=== PATIENT | female | born 1980 | race Caucasian/White ===

== ENCOUNTER → 2016-03-28 | Outpatient (REF) | payer OTHER ==
[2016-03-29 08:06] LABS: CONTROL LINE MONO INT CTR LINE PRESENT
== END ==
LOC: M LAB REF 16:26
PROVIDERS: ATTEND Nurse Practitioner Adult Health
DX: R05 Cough (principal); R50.9 Fever, unspecified

== ENCOUNTER → 2016-07-05 | Outpatient (REF) | payer OTHER | LOC: M SFHCWAGY 16:27 | PROVIDERS: ATTEND Nurse Practitioner Women's Health | DX: Z12.4 Encounter for screening for malignant neoplasm of cervix (principal) ==

== ENCOUNTER 2017-06-21 15:27 | Emergency (ER) | payer OTHER ==
[2017-06-21 17:00] LABS: BASO # 0.1 10^3/uL (0.0-0.2); BASO % 0.4 % (0.0-1.0); EOS # 0.1 10^3/uL (0.0-0.50); EOS % 0.8 % (0.0-3.0); HEMATOCRIT 41.8 % (36.0-47.0); IMMATURE GRANULOCYTE % 0.5 % (0-3.0); LYMPH # 2.9 10^3/uL (1.5-4.5); LYMPH % 22.3 % (24.0-44.0); MEAN CORPUSCULAR HEMOGLOBIN 29.5 pg (27.0-33.0); MEAN CORPUSCULAR HGB CONC 33.5 g/dl (32.0-36.5); MONO # 0.5 10^3/uL (0.0-0.8); MONO % 4.1 % (0.0-5.0); NEUTROPHILS # 9.2 10^3/uL (1.8-7.7); NEUTROPHILS % 71.9 % (36.0-66.0); PLATELET COUNT, AUTOMATED 316 10^3/uL (150-450); RED BLOOD COUNT 4.75 10^6/uL (4.00-5.40); RED CELL DISTRIBUTION WIDTH 12.9 % (11.5-14.5); WHITE BLOOD COUNT 12.8 10^3/uL (4.0-10.0)
[2017-06-21 17:13] LABS: INR 0.97
[2017-06-21 17:14] LABS: PARTIAL THROMBOPLASTIN TIME 30.3 SECONDS (26.8-37.9)
[2017-06-21 17:59] LABS: CONTROL LINE HCG INT CTR LINE PRESENT; HCG, SERUM QUALITATIVE NEGATIVE (NEGATIVE)
[2017-06-21 18:05] LABS: ALBUMIN 3.5 GM/DL (3.2-5.2); ALBUMIN/GLOBULIN RATIO 0.88 (1.00-1.93); ALKALINE PHOSPHATASE 109 U/L (45-117); ALT/SGPT 15 U/L (12-78); ANION GAP 8 MEQ/L (8-16); AST/SGOT 15 U/L (7-37); BILIRUBIN,DIRECT < 0.1 MG/DL (0.0-0.2); BILIRUBIN,TOTAL 0.3 MG/DL (0.2-1.0); BLOOD UREA NITROGEN 13 MG/DL (7-18); CALCIUM LEVEL 8.4 MG/DL (8.5-10.1); CARBON DIOXIDE LEVEL 21 MEQ/L (21-32); CHLORIDE LEVEL 112 MEQ/L (98-107); CPK CREATINE PHOSPHOKINASE 96 U/L (26-192); CREATININE FOR GFR 0.96 MG/DL (0.55-1.30); GLOMERULAR FILTRATION RATE > 60.0 (>60); GLUCOSE, FASTING 83 MG/DL (70-100); MAGNESIUM LEVEL 1.9 MG/DL (1.8-2.4); PHOSPHORUS LEVEL 2.6 MG/DL (2.5-4.9); POTASSIUM SERUM 3.4 MEQ/L (3.5-5.1); SODIUM LEVEL 141 MEQ/L (136-145); TOTAL PROTEIN 7.5 GM/DL (6.4-8.2); TROPONIN I < 0.02 NG/ML (< 0.10)
[2017-06-21 18:10] LABS: CK-MB VALUE MASS < 1.0 NG/ML (<3.6); MB/CK RELATIVE INDEX 1.04 (< OR =4)
[2017-06-21] MEDS: POTASSIUM CHLORIDE 10 MEQ SR TABLET PO (18:42)
== END 2017-06-21 19:55 | disposition home or self-care (01) ==
LOC: M ED 15:27
DX: R47.89 Other speech disturbances (principal); F33.9 Major depressive disorder, recurrent, unspecified; F41.9 Anxiety disorder, unspecified; Z86.69 Personal history of other diseases of the nervous system and sense organs; Z87.891 Personal history of nicotine dependence; Z88.8 Allergy status to other drugs, medicaments and biological substances; Z91.02 Food additives allergy status; Z79.899 Other long term (current) drug therapy
CPT/HCPCS: 71046

== ENCOUNTER 2019-02-17 11:16 | Emergency (ER) | payer OTHER, SELFPAY ==
[~2019-02-17] VITALS: Ht 165.1 cm; Wt 106.4 kg
[~2019-02-17 11:16] MED LIST: CITA40TA4 PO; EXCETAB80 PO; GABA-1171 PO; TOPI50TA9 PO; [UNRECOGNIZED DRUG - OTHER] PO
[2019-02-17] MEDS ORDERED: BUTA-198 PO (11:48)
[2019-02-17 12:47] LABS: BASO # 0.1 10^3/uL (0.0-0.2); BASO % 0.5 % (0.0-1.0); EOS # 0.2 10^3/uL (0.0-0.5); EOS % 1.6 % (0.0-3.0); HEMATOCRIT 41.9 % (36.0-47.0); HEMOGLOBIN 13.6 g/dl (12.0-15.5); LYMPH # 2.8 10^3/uL (1.5-5.0); LYMPH % 26.7 % (24.0-44.0); MEAN CORPUSCULAR HEMOGLOBIN 29.3 pg (27.0-33.0); MEAN CORPUSCULAR HGB CONC 32.5 g/dl (32.0-36.5); MEAN CORPUSCULAR VOLUME 90.3 fl (80.0-96.0); MONO # 0.5 10^3/uL (0.0-0.8); MONO % 4.3 % (0.0-5.0); NEUTROPHILS # 6.9 10^3/uL (1.5-8.5); NEUTROPHILS % 66.6 % (36.0-66.0); PLATELET COUNT, AUTOMATED 257 10^3/uL (150-450); RED BLOOD COUNT 4.64 10^6/uL (4.00-5.40); WHITE BLOOD COUNT 10.4 10^3/uL (4.0-10.0)
--- NOTE | 2019-02-17 13:33 | REP ---
Acute abdomen series: Three views. History: Chest and epigastric pain. Comparison chest x-ray: June 21, 2017. Findings: The upright chest radiograph is normal. There is no evidence of infiltrate or free subdiaphragmatic air. Heart is not enlarged. Supine and erect views of the abdomen show a normal bowel gas pattern. There are tubal ligation clamps in the pelvis both in the midline. Psoas margins and flank stripes are intact. No mass, organomegaly or pathologic calcification is seen. Impression: Tubal ligation clamps visible in the pelvis. Normal bowel gas pattern. Otherwise unremarkable abdomen series. Electronically Signed by Ulises Luis MD 02/17/2019 02:54 P
[2019-02-17 13:58] LABS: ALBUMIN 3.2 GM/DL (3.2-5.2); ALT/SGPT 15 U/L (12-78); AMYLASE 57 U/L (25-115); BILIRUBIN,DIRECT 0.2 MG/DL (0.0-0.2); BILIRUBIN,TOTAL 0.5 MG/DL (0.2-1.0); BLOOD UREA NITROGEN 14 MG/DL (7-18); CALCIUM LEVEL 8.9 MG/DL (8.5-10.1); CARBON DIOXIDE LEVEL 20 MEQ/L (21-32); CHLORIDE LEVEL 108 MEQ/L (98-107); CK-MB VALUE MASS < 1.0 NG/ML (<3.6); CPK CREATINE PHOSPHOKINASE 91 U/L (26-192); GLOMERULAR FILTRATION RATE > 60.0 (>60); GLUCOSE, FASTING 78 MG/DL (70-100); LIPASE 99 U/L (73-393); POTASSIUM SERUM 3.9 MEQ/L (3.5-5.1); SODIUM LEVEL 139 MEQ/L (136-145); TOTAL PROTEIN 6.9 GM/DL (6.4-8.2); TROPONIN I < 0.02 NG/ML (< 0.10)
[2019-02-17 14:16] VITALS: BP 124/74
[2019-02-17] MEDS ORDERED: ISOVUE-370 76% 100ML VIAL (Q9967) As Ordered ONE (14:22)
--- NOTE | 2019-02-17 14:57 | REP ---
CT pulmonary angiogram: With IV contrast. History: Chest pain, elevated D-dimer. Comparison studies: No comparison chest CT. Contrast dose: 75 mL of Isovue [address] technique: Helical scanning is acquired and overlapping 1.5 mm and contiguous 3 mm axial images are reformatted. In addition, maximum intensity projection and multiplanar re-formation images are generated in sagittal and coronal imaging projections. CT pulmonary angiographic findings: There is good opacification in the pulmonary arterial tree. Maximal intensity projection images show no vessel cutoff or filling defect. There is no evidence to suggest pulmonary embolism. Thoracic aorta enhances homogeneously and is normal in course and caliber. The lung ham are clear. There is no evidence of pleural effusion or pericardial effusion. No hilar or mediastinal mass or adenopathy is observed. No bony destructive lesion is appreciated. Impression: No CT evidence of pulmonary embolus. Unremarkable CT pulmonary angiogram. No active disease. Electronically Signed by Ulises Luis MD 02/17/2019 05:52 P
[2019-02-17] MEDS ORDERED: KETOROLAC 30 MG/ML VIAL (J1885) IV ONE (15:15)
[2019-02-17] MEDS ORDERED: NS 500 ML IV ONE (15:15)
[2019-02-17] MEDS ORDERED: SIME180C PO (15:18)
[2019-02-17] MEDS ORDERED: PEPC1TAB5 PO (15:18)
--- NOTE | 2019-02-19 07:38 | ECGEPIP ---
[facility] - ED Test Date: 2019-02-17 Pat Name: JONATHAN ROBLERO Department: Room: - Gender: Female [employer] Operator: : 1980 Requested By: CHANDLER Metzger Order Number: [id number] Reading MD: Lucia Chakraborty Measurements Intervals [place] Rate: 61 P: 28 SD: 134 QRS: 57 QRSD: 86 T: 34 QT: 405 QTc: 409 Interpretive Statements SINUS RHYTHM SIMILAR 06/21/17 Electronically Signed on 02-19-2019 7:38:02 EST by Lucia Chakraborty
== END 2019-02-17 16:11 | disposition home or self-care (01) ==
LOC: M ED 11:16
DX: R07.89 Other chest pain (principal); K58.9 Irritable bowel syndrome, unspecified; G43.909 Migraine, unspecified, not intractable, without status migrainosus; Z79.899 Other long term (current) drug therapy; Z91.018 Allergy to other foods; Z88.8 Allergy status to other drugs, medicaments and biological substances; Z88.6 Allergy status to analgesic agent
CPT/HCPCS: 36415; 71275; 74021; 80048; 80076; 82150; 82550; 82553; 83690; 85025; 85379; 93005; 96361; 96374; 99284; J1885; Q9967

== ENCOUNTER → 2019-04-16 | Outpatient (REF) | payer OTHER ==
[~2019-04-16] MED LIST changes: +BUTA-198 PO; +PEPC1TAB5 PO; +SIME180C PO
[2019-04-16 16:04] LABS: CHLAMYDIA DNA AMPLIFICATION NEGATIVE (NEGATIVE); GC DNA AMPLIFICATION NEGATIVE (NEGATIVE)
== END ==
LOC: M SFHCWAGY 13:39
PROVIDERS: ATTEND Nurse Practitioner Women's Health
DX: R10.2 Pelvic and perineal pain (principal)

== ENCOUNTER → 2019-04-16 | Outpatient (REF) | payer MEDICAID, OTHER, SELFPAY | LOC: M SFHCWAGY 13:11 | PROVIDERS: ATTEND Nurse Practitioner Women's Health | DX: Z12.4 Encounter for screening for malignant neoplasm of cervix (principal) ==

== ENCOUNTER → 2019-06-10 | Outpatient (CLI) | payer OTHER | LOC: M LABSMTC 13:05 | PROVIDERS: ATTEND Family Medicine | DX: Z11.59 Encounter for screening for other viral diseases (principal); Z20.828 Contact with and (suspected) exposure to other viral communicable diseases ==

== ENCOUNTER → 2019-07-15 | Outpatient (CLI) | payer OTHER ==
--- NOTE | 2019-07-15 19:13 | REP ---
Clinical: Pelvic pain. Technique: Transabdominal pelvic ultrasound followed by transvaginal examination for better evaluation of the endometrium and adnexa. Findings: Bladder is normal and measures 6.8 x 6.5 x 5.1 cm. Retroverted uterus measures 7.2 x 4.0 x 4.3 cm with 1.0 cm fundal fibroid. Endometrial complex measures 12 mm thickness. No discrete endometrial abnormalities are identified. Bilateral ovaries are normal in appearance and vascularity without torsion. Right ovary measures 2.8 x 2.1 x 1.9 cm. Left ovary measures 3.2 x 2.8 x 2.7 cm and includes 2.0 cm presumed physiologic cyst / dominant follicle. Trace free fluid likely physiologic and related to menstrual cycle. Impression: 1. 1 cm fundal fibroid. 2. 2 cm left ovarian cyst likely physiologic.
== END ==
LOC: M WHC 08:06
PROVIDERS: ATTEND Nurse Practitioner Women's Health
DX: R10.2 Pelvic and perineal pain (principal); Z87.42 Personal history of other diseases of the female genital tract; Z12.4 Encounter for screening for malignant neoplasm of cervix; N83.201 Unspecified ovarian cyst, right side; D25.9 Leiomyoma of uterus, unspecified

== ENCOUNTER → 2020-03-02 | Outpatient (CLI) | payer OTHER ==
[~2020-03-02] MED LIST changes: +VITA500045 PO
--- NOTE | 2020-03-03 09:12 | REP ---
INDICATION: D25.9 LEIOMYOMA OF UTERUS COMPARISON: 07/15/2019 TECHNIQUE: Transabdominal pelvic ultrasound followed by transvaginal examination for better evaluation of the endometrium and adnexa with color Doppler evaluation of the ovaries. FINDINGS: Bladder is unremarkable and measures 12.4 x 9.1 x 8.2 cm (485 cc).. Heterogeneous retroverted uterus measures 8.0 x 3.8 x 5.6 cm. The endometrial complex measures 8.6 mm thickness. Subserosal fundal fibroid measuring 14 x 14 x 11 mm again noted and mildly enlarged compared to prior. Bilateral ovaries are normal in appearance and vascularity without evidence for torsion. Right ovary measures 3.6 x 2.3 x 2.2 cm with 1.7 cm physiologic cyst; R I = 0.58. Left ovary measures 2.2 x 1.6 x 2.1 cm; R I = 0.59. Small amount of free fluid in the pelvis is nonspecific and likely physiologic. IMPRESSION: Heterogeneous retroverted uterus with 14 mm subserosal fundal fibroid mildly increased in size from prior examination. <Electronically signed by Ok Arzola > 03/03/20 0908
== END ==
LOC: M WHC 12:46
PROVIDERS: ATTEND Obstetrics & Gynecology
DX: D25.9 Leiomyoma of uterus, unspecified (principal)

== ENCOUNTER → 2020-03-10 | Outpatient (CLI) | payer OTHER | LOC: M LABSMTC 11:20 | PROVIDERS: ATTEND Anesthesiology | DX: Z20.822 Contact with and (suspected) exposure to COVID-19 (principal) ==

== ENCOUNTER 2020-03-15 09:33 | Day surgery (SDC) | payer OTHER ==
[2020-03-14 17:45] VITALS: BP 105/63
[~2020-03-15] VITALS: Ht 167.6 cm; Wt 103.9 kg
[~2020-03-15 09:33] MED LIST changes: +LR 1,000 ML IV ONE
--- NOTE | 2020-03-15 09:36 | ROOPDOC ---
[facility] Report Of Operation Report of Operation DATE OF PROCEDURE: 03/15/20 PREPROCEDURE DIAGNOSES: 1. Fibroid uterus. 2. Chronic pelvic pain POSTPROCEDURE DIAGNOSES: 1.Fibroid uterus. 2. Chronic pelvic pain PROCEDURES PERFORMED: 1. Robotic-assisted laparoscopic hysterectomy. 2. Right salpingectomy. 3. Left salpingo-oophorectomy 4. Cystoscopy. SURGEON: Jomar Carrillo MD ASSEMBLY MEMBER: ROBIN Lazo ANESTHESIA: General endotracheal anesthesia. ESTIMATED BLOOD LOSS: 50 mL. INTRAVENOUS FLUIDS: 1000mL lactated Ringer solution. URINE OUTPUT: 100mL. PREPROCEDURE ANTIBIOTICS: 2g Ancef OPERATIVE FINDINGS: The patient with normal-appearing bilateral adnexa and fibroid uterus CYSTOSCOPIC FINDING: Normal bladder mucosa, no foreign objects. Bilateral ureteral jets were observed. SPECIMEN: Uterus, cervix, bilateral fallopian tubes and left ovary DESCRIPTION OF PROCEDURE: After informed consent was obtained and written consent was reviewed, the patient was brought to the operating room, where general endotracheal anesthesia was obtained. She was then placed in lithotomy position, was prepped and draped in a normal sterile fashion. A time-out in the operating room was then performed, identifying the patient, procedure to be performed, as well as drug allergies. A speculum was then placed, revealing the cervix. The anterior and posterior aspects of the cervix were stitched with a 0 Vicryl. The uterus was then sounded to 9 cm. A medium VCare uterine manipulator was then advanced through the cervical os for means to manipulate the uterus. The cervical cap was applied over the cervix, as well as the vaginal sleeve applied into the vagina. The speculum was removed from the patients vagina. A Zavala catheter was then placed and set to gravity. Gloves were changed, and attention was turned to the patients abdomen, where a Veress needle was placed through the umbilicus. A pneumoperitoneum was then obtained with CO2 gas. The supraumbilical area was infused with 0.25% Marcaine. An incision was made in this area, and a 8 mm trocar and sleeve was advanced through this incision. The laparoscope was then replaced, revealing intra-abdominal placement. Three additional port sites were placed, two to the left side of the patient's abdomen and one to the right. These areas was infused with 0.25% Marcaine. Each one of these areas, incisions were made, and 8 mm trocars and sleeves advanced through each one of these incisions under direct visualization. Next, the da Chaya was then docked, utilizing a camera arm and two operative arms. The patient's abdomen was then surveyed with the above-noted finding. Right salpingectomy was performed. The fallopian tube mesosalpinx was cauterized and ligated with hemostasis noted. Left salpingo-oophorectomy was then performed. The right infundibulopelvic ligament was cauterized and ligated with hemostasis noted Next, the uteroovarian ligaments bilateral were cauterized and ligated with good hemostasis noted. The round ligaments bilaterally were cauterized and ligated with good hemostasis noted. The anterior and posterior aspects of broad ligaments were . The anterior leaf of the broad ligament was cauterized and ligated and dissected along the bladder, creating a bladder flap. The remainder of the broad and cardinal ligaments were then cauterized and ligated with good hemostasis noted. The uterine arteries were skeletonized bilaterally and were cauterized and transected with good hemostasis noted. Anterior and posterior colpotomies were made using monopolar scissors. The uterus was then brought out through the vaginal incision along with both fallopian tubes and left ovary. The surgical sites were inspected and noted to be hemostatic. The vaginal cuff was then closed using 2- 0 V-Loc system in a running fashion. Rubi was then applied over the surgical field. The pneumoperitoneum was then released. Next, the cystoscopy was then performed. Utilizing a 70-degree cystoscope, it was advanced transurethrally through the bladder. The bladder was surveyed, showing normal bladder mucosa, no foreign bodies. The bilateral ureteral jets were observed. The cystoscope was then removed. The bladder was then drained. Gloves were changed. Attention was then turned to the patients abdomen, where all four port sites were closed with 4-0 Monocryl and dressed with Dermabond. The patient was then taken out of lithotomy position and was awakened from general anesthesia and taken to recovery in stable condition. Counts were correct. Carlota Stanley, my surgical appliances salesperson, played a central role in the operation. She assisted with port placement, tissue retraction and identification, as well as wound closure. JOMAR CARRILLO MD. Mar 15, 2020 09:36
--- OUTSIDE RECORDS SUMMARY | 2020-03-15 09:38 | CCD | Continuity of Care Document ---
Author Author Gemini WESTBROOK M.D. Organization Unknown Address [address] [place] [id number] Phone [phone] Care Team Providers Care Pool Finisher Name Role Phone Albert, Randa PA-Tung AUTM [phone] Nhung Silverio RPA-C AUTM [phone] Problems Active Problems Provider Date Irritable bowel syndrome Durga Westbrook M.D. Onset: 04/2019 Social History Type Date Description Comments Sex Unknown ETOH Use Denies alcohol use Tobacco Use Start: Unknown Patient has never smoked Allergies, Adverse Reactions, Alerts Active Allergies Reaction Severity Comments Date Imitrex 01/15/2020 Treximet 01/15/2020 Deprovera 01/15/2020 Gabapentin 01/15/2020 Medications Active Medications SIG Qnty Indications Ordering Provide r Date Hyoscyamine Sulfate 0.125mg Tablet s Sub dissolve 1 tablet under the tongue every 4 hours as needed for abdominal pain 60tabs Durga Westbrook M.D. 01/15/2020 Topiramate 50mg Tablets Take One Tablet By Mouth Every Day Along With 100MG Dose Unknown Citalopram Hydrobromide 40mg Table ts Take One Tablet By Mouth Every Day Unknown Amoxicillin/Clavulanate Potassium 875-125mg Tablets Take One Tablet By Mouth Twice A Day For 10 Days Unknown Mucinex Childrens Freeform Cough/Mucus 5-100mg/5ML Liquid Unknown Immunizations Description No Information Available Vital Signs Date Vital Result Comment 01/15/2020 12:28pm Height 66 inches 5'6" Weight 221.00 lb BP Systolic 132 mmHg BP Diastolic 84 mmHg Heart Rate 72 /min BMI (Body Mass Index) 35.7 kg/m2 Weight 100.246 kg Body Temperature 97.2 F Results Description No Information Available Procedures Description No Information Available Medical Devices Description No Information Available Encounters Type Date Location Provider Dx Diagnosis Office Visit 01/15/2020 11:45a Main Office Durga Westbrook M.D. K 58.0 Irritable bowel syndrome with diarrhea Assessments Date Code Description Provider 01/15/2020 K58.0 Irritable bowel syndrome Durga Westbrook M.D. Plan of Treatment 01/15/2020 - Durga Westbrook M.D.* K58.0 Irritable bowel syndrome* Comments: * 39 yo wf who has a h/o irregular bowel habits/lower abdominal cramps/bloating/tenderness. She has had these symptoms for years. No fevers, or chills. Pt may have endometriosis causing her symptoms. No fevers or chills. No rectal bleeding.Plan:1. Heating pad to control cramps/tenderness.2. Antispasmotics.3. High fiber diet.4. Office prn. Functional Status Description No Information Available Mental Status Description No Information Available Referrals Description No Information Available
--- OUTSIDE RECORDS SUMMARY | 2020-03-15 09:38 | CCD ---
Author Author [facility] Organization [facility] Address Unknown Phone Unavailable Care Team Providers Care Global Marketing Manager Name Role Phone JohnPrincess szymanskiKat Unavailable PROBLEMS Type Condition ICD9-CM Code QKD98-UM Code Onset Dates Condition S tatus SNOMED Code Notes Problem Irritable bowel syndrome with both constipation and diarrh ea K58.2 Active 05153527 Problem Abnormal uterine bleeding (AUB) N93.9 Active 47424572882914 Problem Irregular menstrual cycle N92.6 Active 241608 07 Problem Migraine G43.909 Active 01261536 Problem Vaginal discharge N89.8 Active 781422738 ALLERGIES Allergen (clinical drug ingredient) Drug/Non Drug Allergy do cumented on EMR Reaction Allergy Type Onset Date Status naproxen / sumatriptan Treximet([facility] Code:[address]-87) Conf usion/fast heart beat Drug Allergy Active gabapentin Gabapentin(ND Code:[address]-99) chest pain Drug Allergy Active medroxyprogesterone Depo-Provera(ND Code:[address]-52) ping st pain/abd. pain/rash Drug Allergy Active sumatriptan Imitrex(ND Code:[address]-38) confusion/fast h eart beat Drug Allergy Active ENCOUNTERS from 1980 to 2020-01-13 Encounter Location Date Provider Diagnosis [facility] [address] [place] [id number] Dec, Kat Lopez Abnormal uterine ble eding (AUB) N93.9 ; Uterine leiomyoma, unspecified location D25.9 and Irritable bowel syndrome with both constipation and diarrhea K58.2 IMMUNIZATIONS No Information SOCIAL HISTORY Tobacco Use: Social History Observation Description Date Details (start date - stop date) Never Smoker Sex Assigned At : Social History Observation Description Sex Assigned At Unknown Language: Question Answer Notes Languages spoken: Marshallese Sexual Hx: Question Answer Notes Had sex in the last 12 months (vaginal, oral, or anal)? Yes LMP: 04/15/2019 Have you ever had an STD? No Prevention Strategies discussed: Condoms with Men only Use protection? No Tobacco Use: Question Answer Notes Are you a: never smoker REASON FOR REFERRAL No Information VITAL SIGNS Weight 226 lbs Dec, Weight-kg 102.51 kg Dec, Height 63.75 in Dec, BMI 39.09 kg/m2 Dec, Blood pressure systolic 120 mm Hg Dec, Blood pressure diastolic 80 mm Hg Dec, MEDICATIONS Medication SIG (Take, Route, Frequency, Duration) Notes Start Da te End Date Status Ibuprofen 200 mg 1 tablet Orally Every 4 hours as needed MDD 2400 mg Not-Taking MetroGel-Vaginal 0.75 % 1 application at bedtime Vag inal Once a day for 5 day(s) May, Not-Taking Celexa 40 MG 1 tablet Orally Once a day Active Excedrin Migraine 250-250-65 MG 2 tablets Orally Once a day as needed Active Tylenol 325 MG 1 tablet as needed Orally every 6 hrs Not-Taking Topamax 100 MG 1 tablet Orally Once a day Active Diflucan 150 MG 1 tablet Orally Once a day for 1 dose(s) 2 0 May, 2016 Not-Taking PROCEDURES No Information RESULTS No Results REASON FOR VISIT LEFTSIDED LOWER PAIN MEDICAL (GENERAL) HISTORY Type Description Date Medical History depression Medical History migraine sees jorge alberto Cho [employer] Medical History IBS Medical History Uterine fibroids Surgical History tubal ligation 12/25/14 Hospitalization History No Hospitalization history informati on Goals Section No Information Health Concerns No Information MEDICAL EQUIPMENT No Information MENTAL STATUS No Information FUNCTIONAL STATUS No Information ASSESSMENTS Encounter Date Diagnosis Assessment Notes Treatment Notes Treatm ent Clinical Notes Dec, Abnormal uterine bleeding (AUB) (ICD-10 - N93.9) Pt noticing progression of symptoms with menses. Does not tolerate Mirena iud, states allergic to depo, cannot take ocp due to migraines. Would like to have surgical consult for hyster. Dec, Uterine leiomyoma, unspecified location (ICD-10 - D25.9) Dec, Irritable bowel syndrome wit h both constipation and diarrhea (ICD- 10 - K58.2) f/u with GI next week. PLAN OF TREATMENT Treatment Notes Assessment Notes Clinical Notes Abnormal uterine bleeding (AUB) Pt notic ing progression of symptoms with menses. Does not tolerate Mirena iud, states allergic to depo, cannot take ocp due to migraines. Would like to have surgical consult for hyster. Irritable bowel syndrome with both constipation and diarrhea f/u with GI next week. Next Appt Details prn Reason:surgical consult for hyster Provider Name:Soniya Carrillo, 2020-02-23 1 0:40:00 AM, [address] [place], [address], Follow Up:prnsurgical consult for hyster Insurance Providers Payer Name Payer Address Payer Phone Insured Name Patient Relati onship to Insured Coverage Start Date Coverage End Date [facility] [employer] [address] [facility] [phone] JONATHAN ROBLERO self
--- OUTSIDE RECORDS SUMMARY | 2020-03-15 09:38 | CCD | Continuity of Care Document ---
Author Author Gemini CHO P.A.-C. Organization Unknown Address [address] [place] [address] Phone [phone] Care Team Providers Care Bottling Room Worker Name Role Phone Lokesh Gilmore AUTM [phone] Problems Description No Information Available Social History Type Date Description Comments Sex Unknown Allergies, Adverse Reactions, Alerts Active Allergies Reaction Severity Comments Date Maxalt 12/01/2009 Tussionex Pennkinetic Extended Release 12/01/2009 Treximet palpitations, sweats, and heaviness in arms and chest 06/23/2010 Hydroxyzine extreme fatigue 07/22/2013 Claritin-D dizziness, spacy 04/23/2015 Depo Provera rash, chest pain 01/27/2016 Imitrex did not tolerate 01/27/2016 Gabapentin 02/14/2018 Medications Active Medications SIG Qnty Indications Ordering Provide r Date Topamax 50mg Tablets 1 po daily with 100 mg dose 30tabs G43.709 Karolyn Muniz M.D. 12/16/2019 Butalbital/Acetaminophen/Caffeine 50-325-40mg Tablets take 1 tablet by mouth at onset of uncon trolled migraine maximum daily dose = 2 30tabs G43.709 Karolyn Muniz M.D. 02/14/2018 Topamax 100mg Tablets 1 po daily 30tabs G44.219 Karolyn Muniz M.D. 08/14/2017 Celexa 40mg Tablets 1 by mouth every day 30tabs F32.89 Karolyn Muniz M.D. 06/18/2017 Immunizations Description No Information Available Vital Signs Date Vital Result Comment 02/11/2019 6:56am BP Systolic 130 mmHg BP Diastolic 80 mmHg Heart Rate 72 /min Respiratory Rate 16 /min 08/06/2018 7:26am BP Systolic 110 mmHg BP Diastolic 80 mmHg Heart Rate 76 /min Respiratory Rate 16 /min Results Description No Information Available Procedures Description No Information Available Medical Devices Description No Information Available Encounters Type Date Location Provider Dx Diagnosis Office Visit 12/16/2019 8:00a Main office - [place] Juan Lucas.A.-C. 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 12/16/2019 G43.709 Chronic migraine without aura, n ot intractable, without stat Marcella Cho, P.A.-C. 12/16/2019 M54.5 Low back pain Marcella Cho P.A.-C. 12/16/2019 R20.2 Paresthesia of skin Marcella catalan P.A.-C. 12/16/2019 F32.89 Other specified depressive episo max Marcella Cho P.A.-C. 08/06/2019 G43.709 Chronic migraine without aura, n ot intractable, without stat Digna SanchezAScottie-C. 08/06/2019 G44.219 Episodic tension-type headache, not intractable Juan Sanchez.AScottie-C. 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 08/06/2019 F32.89 Other specified depressive episo max Marcella Cho P.A.-C. 08/06/2019 M54.2 Cervicalgia Marcella Cho P.A.-C. 08/06/2019 M54.5 Low back pain Juan Sanchez.A.-C. 08/06/2019 R20.2 Paresthesia of skin Francisco Lucas-CScottie Plan of Treatment Future Appointment(s):* 03/16/2020 9:00 am - Marcella Cho P.A.-C. 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 Created [facility] [address] [place] [address] [phone]
--- OUTSIDE RECORDS SUMMARY | 2020-03-15 09:38 | CCD ---
Author Author [facility] Organization [facility] Address Unknown Phone Unavailable Care Team Providers Care Frame Trimmer Name Role Phone Debbie Orr Unavailable Naper, L Faby CONGRESSIONAL REPRESENTATIVE Unavailable Unavailable Naper, L Faby CONGRESSIONAL REPRESENTATIVE Unavailable Unavailable Naper, L Faby CONGRESSIONAL REPRESENTATIVE Unavailable Unavailable Drew, L Faby CONGRESSIONAL REPRESENTATIVE Unavailable Unavailable Naper, L Faby CONGRESSIONAL REPRESENTATIVE Unavailable Unavailable Naper, L Faby CONGRESSIONAL REPRESENTATIVE Unavailable Unavailable Naper, L Faby CONGRESSIONAL REPRESENTATIVE Unavailable Unavailable Drew, L Faby CONGRESSIONAL REPRESENTATIVE Unavailable Unavailable Drew, L Faby CONGRESSIONAL REPRESENTATIVE Unavailable Unavailable Naper, L Faby CONGRESSIONAL REPRESENTATIVE Unavailable Unavailable Naper, L Faby CONGRESSIONAL REPRESENTATIVE Unavailable Unavailable Drew, L Faby CONGRESSIONAL REPRESENTATIVE Unavailable Unavailable Drew, L Faby CONGRESSIONAL REPRESENTATIVE Unavailable Unavailable Naper, L Faby CONGRESSIONAL REPRESENTATIVE Unavailable Unavailable Naper, L Faby CONGRESSIONAL REPRESENTATIVE Unavailable Unavailable Naper, L Faby CONGRESSIONAL REPRESENTATIVE Unavailable Unavailable Drew, L Faby CONGRESSIONAL REPRESENTATIVE Unavailable Unavailable Drew, L Faby CONGRESSIONAL REPRESENTATIVE Unavailable Unavailable Drew, L Faby CONGRESSIONAL REPRESENTATIVE Unavailable Unavailable Drew, L Faby CONGRESSIONAL REPRESENTATIVE Unavailable Unavailable Naper, L Faby CONGRESSIONAL REPRESENTATIVE Unavailable Unavailable Naper, L Faby CONGRESSIONAL REPRESENTATIVE Unavailable Unavailable Drew, L Faby CONGRESSIONAL REPRESENTATIVE Unavailable Unavailable Drew, L Faby CONGRESSIONAL REPRESENTATIVE Unavailable Unavailable Drew, L Faby CONGRESSIONAL REPRESENTATIVE Unavailable Unavailable Naper, L Faby CONGRESSIONAL REPRESENTATIVE Unavailable Unavailable Naper, L Faby CONGRESSIONAL REPRESENTATIVE Unavailable Unavailable Drew, L Faby CONGRESSIONAL REPRESENTATIVE Unavailable Unavailable Naper, L Faby CONGRESSIONAL REPRESENTATIVE Unavailable Unavailable Naper, L Faby CONGRESSIONAL REPRESENTATIVE Unavailable Unavailable Naper, L Faby CONGRESSIONAL REPRESENTATIVE Unavailable Unavailable Naper, L Faby CONGRESSIONAL REPRESENTATIVE Unavailable Unavailable Drew, L Faby CONGRESSIONAL REPRESENTATIVE Unavailable Unavailable Rishi Westbrook MD Unavailable Unavailable Rishi Westbrook MD Unavailable Unavailable Rishi Westbrook MD Unavailable Unavailable Rishi Westbrook MD Unavailable Unavailable Rishi Westbrook MD Unavailable Unavailable Rishi Westbrook MD Unavailable Unavailable Rishi Westbrook MD Unavailable Unavailable Rishi Westbrook MD Unavailable Unavailable Rishi Westbrook MD Unavailable Unavailable Rishi Westbrook MD Unavailable Unavailable Rishi Westbrook MD Unavailable Unavailable Rishi Westbrook MD Unavailable Unavailable Rishi Westbrook MD Unavailable Unavailable Rishi Westbrook MD Unavailable Unavailable Rishi Westbrook MD Unavailable Unavailable Rishi Westbrook MD Unavailable Unavailable Rishi Westbrook MD Unavailable Unavailable Rishi Westbrook MD Unavailable Unavailable Rishi Westbrook MD Unavailable Unavailable Rishi Westbrook MD Unavailable Unavailable Rishi Westbrook MD Unavailable Unavailable Rishi Westbrook MD Unavailable Unavailable Rishi Westbrook MD Unavailable Unavailable Rishi Westbrook MD Unavailable Unavailable Rishi Westbrook MD Unavailable Unavailable Rishi Westbrook MD Unavailable Unavailable Rishi Westbrook MD Unavailable Unavailable Rishi Westbrook MD Unavailable Unavailable Rishi Westbrook MD Unavailable Unavailable Rishi Westbrook MD Unavailable Unavailable Rishi Westbrook MD Unavailable Unavailable Rishi Westbrook MD Unavailable Unavailable Rishi Westbrook MD Unavailable Unavailable Rishi Westbrook MD Unavailable Unavailable Rishi Westbrook MD Unavailable Unavailable Rishi Westbrook MD Unavailable Unavailable Rishi Westbrook MD Unavailable Unavailable Rishi Westbrook MD Unavailable Unavailable Rishi Westbrook MD Unavailable Unavailable Rishi Westbrook MD Unavailable Unavailable Rishi Westbrook MD Unavailable Unavailable Rishi Westbrook MD Unavailable Unavailable Rishi Westbrook MD Unavailable Unavailable Rishi Westbrook MD Unavailable Unavailable Rishi Westbrook MD Unavailable Unavailable Dariana, Rishi Calixto MD Unavailable Unavailable Dariana, Rishi Calixto MD Unavailable Unavailable Dariana, Rishi Calixto MD Unavailable Unavailable ELI, L BAM PA Unavailable Unavailable ELI, L BAM PA Unavailable Unavailable ELI, L BAM PA Unavailable Unavailable ELI, L BAM PA Unavailable Unavailable ELI, L BAM PA Unavailable Unavailable ELI, L BAM PA Unavailable Unavailable ELI, L BAM PA Unavailable Unavailable ELI, L BAM PA Unavailable Unavailable ELI, L BAM PA Unavailable Unavailable ELI, L BAM PA Unavailable Unavailable ELI, L BAM PA Unavailable Unavailable ELI, L BAM PA Unavailable Unavailable ELI, L BAM PA Unavailable Unavailable ELI, L BAM PA Unavailable Unavailable ELI, L BAM PA Unavailable Unavailable ELI, L BAM PA Unavailable Unavailable ELI, L BAM PA Unavailable Unavailable ELI, L BAM PA Unavailable Unavailable ELI, L BAM PA Unavailable Unavailable SANCHEZ SR, KG ARTEAGA MD Unavailable Unavailable SANCHEZ SR, KG ARTEAGA MD Unavailable Unavailable SANCHEZ SR, KG ARTEAGA MD Unavailable Unavailable SANCHEZ SR, KG ARTEAGA MD Unavailable Unavailable SANCHEZ SR, KG ARTEAGA MD Unavailable Unavailable SANCHEZ SR, KG ARTEAGA MD Unavailable Unavailable SANCHEZ SR, KG ARTEAGA MD Unavailable Unavailable SANCHEZ SR, KG ARTEAGA MD Unavailable Unavailable SANCHEZ SR, KG ARTEAGA MD Unavailable Unavailable SANCHEZ SR, KG ARTEAGA MD Unavailable Unavailable SANCEHZ SR, KG ARTEAGA MD Unavailable Unavailable SANCHEZ SR, KG ARTEAGA MD Unavailable Unavailable SANCHEZ SR, KG ARTEAGA MD Unavailable Unavailable SANCHEZ SR, KG ARTEAGA MD Unavailable Unavailable SANCHEZ SR, KG ARTEAGA MD Unavailable Unavailable SANCHEZ SR, KG ARTEAGA MD Unavailable Unavailable SANCHEZ SR, KG ARTEAGA MD Unavailable Unavailable SANCHEZ SR, KG ARTEAGA MD Unavailable Unavailable SANCHEZ SR, KG ARTEAGA MD Unavailable Unavailable SANCHEZ SR, KG ARTEAGA MD Unavailable Unavailable SANCHEZ SR, KG ARTEAGA MD Unavailable Unavailable SANCHEZ SR, KG ARTEAGA MD Unavailable Unavailable SANCHEZ SR, KG ARTEAGA MD Unavailable Unavailable SANCHEZ SR, KG ARTEAGA MD Unavailable Unavailable SANCHEZ SR, KG ARTEAGA MD Unavailable Unavailable SANCHEZ SR, KG ARTEAGA MD Unavailable Unavailable SANCHEZ SR, KG ARTEAGA MD Unavailable Unavailable SANCHEZ SR, KG ARTEAGA MD Unavailable Unavailable SANCHEZ SR, KG ARTEAGA MD Unavailable Unavailable SANCHEZ SR, KG RATEAGA MD Unavailable Unavailable SANCHEZ SR, KG ARTEAGA MD Unavailable Unavailable SANCHEZ SR, KG ARTEAGA MD Unavailable Unavailable SANCHEZ SR, KG ARTEAGA MD Unavailable Unavailable SANCHEZ SR, KG ARTEAGA MD Unavailable Unavailable SANCHEZ SR, KG ARTEAGA MD Unavailable Unavailable SANCHEZ SR, KG ARTEAGA MD Unavailable Unavailable SANCHEZ SR, KG ARTEAGA MD Unavailable Unavailable SANCHEZ SR, KG ARTEAGA MD Unavailable Unavailable SANCHEZ SR, KG ARTEAGA MD Unavailable Unavailable SANCHEZ SR, KG ARTEAGA MD Unavailable Unavailable SANCHEZ SR, KG ARTEAGA MD Unavailable Unavailable SANCHEZ SR, KG ARTEAGA MD Unavailable Unavailable SANCHEZ SR, KG ARTEAGA MD Unavailable Unavailable SANCHEZ SR, KG ARTEAGA MD Unavailable Unavailable SANCHEZ SR, KG ARTEAGA MD Unavailable Unavailable SANCHEZ SR, KG ARTEAGA MD Unavailable Unavailable SACNHEZ SR, KG ARTEAGA MD Unavailable Unavailable SANCHEZ SR, KG ARTEAGA MD Unavailable Unavailable SANCHEZ SR, KG ARTEAGA MD Unavailable Unavailable SANCHEZ SR, KG ARTEAGA MD Unavailable Unavailable SANCHEZ SR, KG ARTEAGA MD Unavailable Unavailable SANCHEZ SR, KG ARTEAGA MD Unavailable Unavailable SANCHEZ SR, KG ARTEAGA MD Unavailable Unavailable SANCHEZ SR, KG ARTEAGA MD Unavailable Unavailable Marbury, Nhung RPA-C Unavailable Unavailable Marbury, Nhung RPA-C Unavailable Unavailable Marbury, Nhung RPA-C Unavailable Unavailable Marbury, Nhung RPA-C Unavailable Unavailable Marbury, Nhung RPA-C Unavailable Unavailable Marbury, Nhung RPA-C Unavailable Unavailable Marbury, Nhung RPA-C Unavailable Unavailable Marbury, Nhung RPA-C Unavailable Unavailable Marbury, Nhung RPA-C Unavailable Unavailable Marbury, Nhung RPA-C Unavailable Unavailable Marbury, Nhung RPA-C Unavailable Unavailable Marbury, Nhung RPA-C Unavailable Unavailable Marbury, Nhung RPA-C Unavailable Unavailable Marbury, Nhung RPA-C Unavailable Unavailable Marbury, Nhung RPA-C Unavailable Unavailable Rock CUEVAS Unavailable Unavailable Trickey, J Marcella PA Unavailable Unavailable Trickey, J Marcella PA Unavailable Unavailable Trickey, J Marcella PA Unavailable Unavailable Trickey, J Marcella PA Unavailable Unavailable Trickey, J Marcella PA Unavailable Unavailable Trickey, J Marcella PA Unavailable Unavailable Trickey, J Marcella PA Unavailable Unavailable Trickey, J Marcella PA Unavailable Unavailable Trickey, J Marcella PA Unavailable Unavailable Trickey, J Marcella PA Unavailable Unavailable Trickey, J Marcella PA Unavailable Unavailable Trickey, J Marcella PA Unavailable Unavailable Trickey, J Marcella PA Unavailable Unavailable Trickey, J Marcella PA Unavailable Unavailable Trickey, J Marcella PA Unavailable Unavailable Trickey, J Marcella PA Unavailable Unavailable Trickey, J Marcella PA Unavailable Unavailable Trickey, J Marcella PA Unavailable Unavailable Trickey, J Marcella PA Unavailable Unavailable Trickey, J Marcella PA Unavailable Unavailable Trickey, J Marcella PA Unavailable Unavailable Trickey, J Marcella PA Unavailable Unavailable Trickey, J Marcella PA Unavailable Unavailable Trickey, J Marcella PA Unavailable Unavailable Trickey, J Marcella PA Unavailable Unavailable Trickey, J Marcella PA Unavailable Unavailable Trickey, J Marcella PA Unavailable Unavailable Trickey, J Marcella PA Unavailable Unavailable Trickey, J Marcella PA Unavailable Unavailable Trickey, J Marcella PA Unavailable Unavailable Trickey, J Marcella PA Unavailable Unavailable Trickey, J Marcella PA Unavailable Unavailable Trickey, J Marcella PA Unavailable Unavailable Trickey, J Marcella PA Unavailable Unavailable Trickey, J Marcella PA Unavailable Unavailable Trickey, J Marcella PA Unavailable Unavailable Trickey, J Marcella PA Unavailable Unavailable Trickey, J Marcella PA Unavailable Unavailable Trickey, J Marcella PA Unavailable Unavailable Trickey, J Marcella PA Unavailable Unavailable Trickey, J Marcella PA Unavailable Unavailable Trickey, J Marcella PA Unavailable Unavailable Trickey, J Marcella PA Unavailable Unavailable Trickey, J Marcella PA Unavailable Unavailable Trickey, J Marcella PA Unavailable Unavailable Trickey, J Marcella PA Unavailable Unavailable Trickey, J Marcella PA Unavailable Unavailable Trickey, J Marcella PA Unavailable Unavailable Trickey, J Marcella PA Unavailable Unavailable Trickey, J Marcella PA Unavailable Unavailable Trickey, J Marcella PA Unavailable Unavailable Trickey, J Marcella PA Unavailable Unavailable Jesse, [facility] [place] TECHNICAL FELLOW-C Unavailable Unavailabl e Jesse, [facility] [place] TECHNICAL FELLOW-C Unavailable Unavailabl e Jesse, [facility] [place] TECHNICAL FELLOW-C Unavailable Unavailabl e Jesse, [facility] [place] TECHNICAL FELLOW-C Unavailable Unavailabl e Jesse, [facility] [place] TECHNICAL FELLOW-C Unavailable Unavailabl e Jesse, [facility] [place] TECHNICAL FELLOW-C Unavailable Unavailabl e Jesse, [facility] [place] TECHNICAL FELLOW-C Unavailable Unavailabl e Jesse, [facility] [place] TECHNICAL FELLOW-C Unavailable Unavailabl e Jesse, [facility] [place] TECHNICAL FELLOW-C Unavailable Unavailabl e Jesse, [facility] [place] TECHNICAL FELLOW-C Unavailable Unavailabl e Jesse, [facility] [place] TECHNICAL FELLOW-C Unavailable Unavailabl e Jesse, Reginah W [place] TECHNICAL FELLOW-C Unavailable Unavailabl e Jesse, Fabiana Padgett TECHNICAL FELLOW-C Unavailable Unavailabl e Jesse, Fabiana Pricee TECHNICAL FELLOW-C Unavailable Unavailabl e Jesse, Fabiana [place] TECHNICAL FELLOW-C Unavailable Unavailabl e Jesse, Fabiana Pricee TECHNICAL FELLOW-C Unavailable Unavailabl e Jesse, Fabiana [place] TECHNICAL FELLOW-C Unavailable Unavailabl e Jesse, Fabiana [place] TECHNICAL FELLOW-C Unavailable Unavailabl e Jesse, Fabiana [place] TECHNICAL FELLOW-C Unavailable Unavailabl e Jesse, Fabiana [place] TECHNICAL FELLOW-C Unavailable Unavailabl e Jesse, Fabiana [place] TECHNICAL FELLOW-C Unavailable Unavailabl e Jesse, Fabiana [place] TECHNICAL FELLOW-C Unavailable Unavailabl e Jesse, Fabiana [place] TECHNICAL FELLOW-C Unavailable Unavailabl e Jesse, Fabiana [place] TECHNICAL FELLOW-C Unavailable Unavailabl e Jesse, Fabiana [place] TECHNICAL FELLOW-C Unavailable Unavailabl e Jesse, Fabiana [place] TECHNICAL FELLOW-C Unavailable Unavailabl e Jesse, Fabiana [place] TECHNICAL FELLOW-C Unavailable Unavailabl e Jesse, Fabiana Pricee TECHNICAL FELLOW-C Unavailable Unavailabl e Jesse, Fabiana Lynnyce TECHNICAL FELLOW-C Unavailable Unavailabl e Jesse, Fabiana [place] TECHNICAL FELLOW-C Unavailable Unavailabl e Jesse, Fabiana [place] TECHNICAL FELLOW-C Unavailable Unavailabl e Jesse, Fabiana [facility] [place] TECHNICAL FELLOW-C Unavailable Unavailabl e LePine, M Kiley CONGRESSIONAL REPRESENTATIVE Unavailable Unavailable LePine, M Kiley CONGRESSIONAL REPRESENTATIVE Unavailable Unavailable LePine, M Kiley CONGRESSIONAL REPRESENTATIVE Unavailable Unavailable LePine, M Kiley CONGRESSIONAL REPRESENTATIVE Unavailable Unavailable LePine, M Kiley CONGRESSIONAL REPRESENTATIVE Unavailable Unavailable LePine, M Kiley CONGRESSIONAL REPRESENTATIVE Unavailable Unavailable LePine, M Kiley CONGRESSIONAL REPRESENTATIVE Unavailable Unavailable LePine, M Kiley CONGRESSIONAL REPRESENTATIVE Unavailable Unavailable LePine, M Kiley CONGRESSIONAL REPRESENTATIVE Unavailable Unavailable LePine, M Kiley CONGRESSIONAL REPRESENTATIVE Unavailable Unavailable LePine, M Kiley CONGRESSIONAL REPRESENTATIVE Unavailable Unavailable LePine, M Kiley CONGRESSIONAL REPRESENTATIVE Unavailable Unavailable LePine, M Kiley CONGRESSIONAL REPRESENTATIVE Unavailable Unavailable LePine, M Kiley CONGRESSIONAL REPRESENTATIVE Unavailable Unavailable LePine, M Kiley CONGRESSIONAL REPRESENTATIVE Unavailable Unavailable LePine, M Kiley CONGRESSIONAL REPRESENTATIVE Unavailable Unavailable LePine, M Kiley CONGRESSIONAL REPRESENTATIVE Unavailable Unavailable LePine, M Kiley CONGRESSIONAL REPRESENTATIVE Unavailable Unavailable LePine, M Kiley CONGRESSIONAL REPRESENTATIVE Unavailable Unavailable LePine, M Kiley CONGRESSIONAL REPRESENTATIVE Unavailable Unavailable LePine, M Kiley CONGRESSIONAL REPRESENTATIVE Unavailable Unavailable LePine, M Kiley CONGRESSIONAL REPRESENTATIVE Unavailable Unavailable LePine, M Kiley CONGRESSIONAL REPRESENTATIVE Unavailable Unavailable LePine, M Kiley CONGRESSIONAL REPRESENTATIVE Unavailable Unavailable LePine, M Kiley CONGRESSIONAL REPRESENTATIVE Unavailable Unavailable LePine, M Kiley CONGRESSIONAL REPRESENTATIVE Unavailable Unavailable LePine, M Kiley CONGRESSIONAL REPRESENTATIVE Unavailable Unavailable LePine, M Kiley CONGRESSIONAL REPRESENTATIVE Unavailable Unavailable LePine, M Kiley CONGRESSIONAL REPRESENTATIVE Unavailable Unavailable LePine, M Kiley CONGRESSIONAL REPRESENTATIVE Unavailable Unavailable LePine, M Kiley CONGRESSIONAL REPRESENTATIVE Unavailable Unavailable LePine, M Kiley CONGRESSIONAL REPRESENTATIVE Unavailable Unavailable LePine, M Kiley CONGRESSIONAL REPRESENTATIVE Unavailable Unavailable LePine, M Kiley CONGRESSIONAL REPRESENTATIVE Unavailable Unavailable LePine, M Kiley CONGRESSIONAL REPRESENTATIVE Unavailable Unavailable LePine, M Kiley CONGRESSIONAL REPRESENTATIVE Unavailable Unavailable LePine, M Kliey CONGRESSIONAL REPRESENTATIVE Unavailable Unavailable LePine, M Kiley CONGRESSIONAL REPRESENTATIVE Unavailable Unavailable LePine, M Kiley CONGRESSIONAL REPRESENTATIVE Unavailable Unavailable LePine, M Kiley CONGRESSIONAL REPRESENTATIVE Unavailable Unavailable LePine, M Kiley CONGRESSIONAL REPRESENTATIVE Unavailable Unavailable LePine, M Kiley CONGRESSIONAL REPRESENTATIVE Unavailable Unavailable LePine, M Kiley CONGRESSIONAL REPRESENTATIVE Unavailable Unavailable LePine, M Kiley CONGRESSIONAL REPRESENTATIVE Unavailable Unavailable LePine, M Kiley CONGRESSIONAL REPRESENTATIVE Unavailable Unavailable LePine, M Kiley CONGRESSIONAL REPRESENTATIVE Unavailable Unavailable LePine, M Kiley CONGRESSIONAL REPRESENTATIVE Unavailable Unavailable LePine, M Kiley CONGRESSIONAL REPRESENTATIVE Unavailable Unavailable LePine, M Kiley CONGRESSIONAL REPRESENTATIVE Unavailable Unavailable LePine, M Kiley CONGRESSIONAL REPRESENTATIVE Unavailable Unavailable LePine, M Kiley CONGRESSIONAL REPRESENTATIVE Unavailable Unavailable LePine, M Kiley CONGRESSIONAL REPRESENTATIVE Unavailable Unavailable LePine, M Kiley CONGRESSIONAL REPRESENTATIVE Unavailable Unavailable LePine, M Kiley CONGRESSIONAL REPRESENTATIVE Unavailable Unavailable LePine, M Kiley CONGRESSIONAL REPRESENTATIVE Unavailable Unavailable Dawson, Marcella Unavailable Trickey, J Marcella PA Unavailable Unavailable Trickey, J Marcella PA Unavailable Unavailable Trickey, J Marcella PA Unavailable Unavailable Trickey, J Marcella PA Unavailable Unavailable Trickey, J Marcella PA Unavailable Unavailable Trickey, J Marcella PA Unavailable Unavailable Trickey, J Marcella PA Unavailable Unavailable Trickey, J Marcella PA Unavailable Unavailable Trickey, J Marcella PA Unavailable Unavailable Trickey, J Marcella PA Unavailable Unavailable Trickey, J Marcella PA Unavailable Unavailable Trickey, J Marcella PA Unavailable Unavailable Trickey, J Marcella PA Unavailable Unavailable Trickey, J Marcella PA Unavailable Unavailable Trickey, J Marcella PA Unavailable Unavailable Trickey, J Marcella PA Unavailable Unavailable Trickey, J Marcella PA Unavailable Unavailable Trickey, J Marcella PA Unavailable Unavailable Trickey, J Marcella PA Unavailable Unavailable Trickey, J Marcella PA Unavailable Unavailable Trickey, J Marcella PA Unavailable Unavailable Trickey, J Marcella PA Unavailable Unavailable Trickey, J Marcella PA Unavailable Unavailable Trickey, J Marcella PA Unavailable Unavailable Trickey, J Marcella PA Unavailable Unavailable Trickey, J Marcella PA Unavailable Unavailable Trickey, J Marcella PA Unavailable Unavailable Trickey, J Marcella PA Unavailable Unavailable Trickey, J Marcella PA Unavailable Unavailable Trickey, J Marcella PA Unavailable Unavailable Trickey, J Marcella PA Unavailable Unavailable Trickey, J Marcella PA Unavailable Unavailable Trickey, J Marcella PA Unavailable Unavailable Trickey, J Marcella PA Unavailable Unavailable Trickey, J Marcella PA Unavailable Unavailable Trickey, J Marcella PA Unavailable Unavailable Trickey, J Marcella PA Unavailable Unavailable Trickey, J Marcella PA Unavailable Unavailable Trickey, J Marcella PA Unavailable Unavailable Trickey, J Marcella PA Unavailable Unavailable Trickey, J Marcella PA Unavailable Unavailable Trickey, J Marcella PA Unavailable Unavailable Trickey, J Marcella PA Unavailable Unavailable Trickey, J Marcella PA Unavailable Unavailable Trickey, J Marcella PA Unavailable Unavailable Trickey, J Marcella PA Unavailable Unavailable Trickey, J Marcella PA Unavailable Unavailable Trickey, J Marcella PA Unavailable Unavailable Trickey, J Marcella PA Unavailable Unavailable Trickey, J Marcella PA Unavailable Unavailable Trickey, J Marcella PA Unavailable Unavailable Trickey, J Marcella PA Unavailable Unavailable Re-disclosure Warning The records that you are about to access may contain information from federally-assisted alcohol or drug abuse programs. If such information is present, then the following federally mandated warning applies: This information has been disclosed to you from records protected by federal confidentiality rules (42 CFR part 2). The federal rules prohibit you from making any further disclosure of this information unless further disclosure is expressly permitted by the written consent of the person to whom it pertains or as otherwise permitted by 42 CFR part 2. A general authorization for the release of medical or other information is NOT sufficient for this purpose. The Federal rules restrict any use of the information to criminally investigate or prosecute any alcohol or drug abuse patient.The records that you are about to access may contain highly sensitive health information, the redisclosure of which is protected by Article 27-F of the [facility] Public Health law. If you continue you may have access to information: Regarding HIV / AIDS; Provided by facilities licensed or operated by the [facility] Office of Mental Health; or Provided by the [facility] Office for People With Developmental Disabilities. If such information is present, then the following [facility] mandated warning applies: This information has been disclosed to you from confidential records which are protected by state law. State law prohibits you from making any further disclosure of this information without the specific written consent of the person to whom it pertains, or as otherwise permitted by law. Any unauthorized further disclosure in violation of state law may result in a fine or skilled nursing sentence or both. A general authorization for the release of medical or other information is NOT sufficient authorization for further disc losure. Family History Family Member Name Family Member Gender Family Member Status Date o f Status Description Data Source(s) Unknown Unknown Problem [facility] ([facility]) Unknown Unknown Problem [facility] ([facility]) Unknown Unknown Problem [facility] ([facility]) Encounters Encounter Providers Location Date Indications Data Source(s ) [place] [address] [facility] [id number] 02/23/2020 12:00:00 AM EST eCW1 ([facility]) Outpatient Attender: Durga Westbrook MD Main Office 01/15/2020 10:45:00 AM EST [facility] ([facility]) Outpatient [address] [facility] [id number] 01/06/2020 12:00:00 AM EST eCW1 ([facility]) Outpatient Attender: MARCELO CUEVAS 12/23/2019 10:00:00 AM [facility] Outpatient Attender: Nhung Silverio RPA-C 12/16/2019 01:53: 00 PM [facility] Outpatient Attender: Marcella SAUNDERS Main office - [facility] 12/16/2019 07:00:00 AM EST [facility] ([facility] ) Outpatient Attender: Nhung Silverio RPA-C 12/09/2019 01:50: 00 PM [facility] Emergency Attender: BAM Yoder: [facility] 12/05/2019 03:22:00 PM EDT - 12/05/2019 05:58:00 PM EDT [facility] Patient discharged. Outpatient Attender: Faby Russell RNPReferrer: [facility] 11/25/2019 10:54:00 AM EDT - 11/25/2019 10:54:00 AM EDT [facility] Outpatient Attender: Marcella SAUNDERS Main office - [facility] 08/06/2019 08:30:00 AM EDT [facility] ([facility]) Outpatient Referrer: Kiley NG 07/29/2019 05:09:00 AM EDT [facility] Imaging Attender: Marcella Osman 07/23/2019 12:00:00 AM EDT [facility] ([facility]) [id number]"Psychotherapy Attender: Marcella Dawson [facility] 07/22/2019 01:45:00 AM EDT - 07/22/2019 01:45:00 AM EDT [facility] ([facility]) [id number]" psychotherapy Attender: Marcella Osman [facility] 06/10/2019 03:45:00 AM EDT - 06/10/2019 03:45:00 AM EDT [facility] ([facility]) Attender: Marcella Osman 06/10/2019 12:00:00 AM EDT [facility] ([facility]) Outpatient Attender: Lorin AHN 05/19/2019 10:53:0 0 AM EDT [facility] Attender: Marcella Osman 05/02/2019 12:00:00 AM EDT [facility] ([facility]) Psychiatric Diagnostic Evaluation (Non-Medical) Attender: Azalia [facility] 05/01/2019 06:30:00 AM EDT - 05/01/2019 06:30:00 AM EDT [facility] ([facility]) Psychiatric Diagnostic Evaluation (Non-Medical) Attender: Azalia bazan [facility] 04/23/2019 07:00:00 AM EDT - 04/23/2019 07:00:00 AM EDT [facility] ([facility]) Attender: Marcella Osman 04/23/2019 12:00:00 AM EDT [facility] ([facility]) [address] [address] 04/17/2019 12:00:00 AM EST eCW1 ([facility]) Psychiatric Diagnostic Evaluation (Non-Medical) Attender: Azalia bazan [facility] 04/16/2019 07:15:00 AM EST - 04/16/2019 07:15:00 AM EST [facility] ([facility]) [address] [address] 04/16/2019 12:00:00 AM EST eCW1 ([facility]) Attender: Marcella Osman 04/16/2019 12:00:00 AM EST [facility] ([facility]) Outpatient Attender: CHANDLER SANCHEZ SR 04/11/2019 08:41:00 AM [facility] Outpatient Attender: CHANDLER SANCHEZ SRReferrer: CHANDLER Devine SR 04/11/2019 08:00:00 AM [facility] Extended Individual Psychotherapy - 45 min Att[facility]: [facility] 04/01/2019 09:15:00 AM EST - 04/01/2019 09:15:00 AM EST [facility] ([facility]) Attender: Debbie Orr 04/01/2019 12:00:00 A M EST [facility] ([facility]) Outpatient Attender: CHANDLER SANCHEZ SRReferrer: CHANDLER Devine SR 03/14/2019 09:00:00 AM [facility] Outpatient Attender: CHANDLER SANCHEZ SRReferrer: LINSEY SANCHEZ SR [facility] 03/07/2019 09:04:00 AM EST - 03/07/2019 09:04:00 AM [facility] Outpatient Referrer: Kiley NG 03/03/2019 07:55:00 PM EST [facility] Outpatient Attender: Marcella SAUNDERS Main office - [facility] 02/11/2019 08:00:00 AM EST [facility] ([facility]) Outpatient Attender: Marcella SAUNDERS 08/08/2012 09:49:00 A M [facility] Medications Medication Brand Name Start Date Product Form Dose Route Admi nistrative Instructions Pharmacy Instructions Status Indications Reaction Description Data Source(s) 200 mg 03/12/2020 12:00:00 AM EST tablet 3 TAKE ONE TABLET BY MOUTH THREE TIMES A DAY AFTER MEALS DAY BEFORE SURGERY TAKE ONE TABLET BY MOUTH THREE TIMES A DAY AFTER MEALS DAY BEFORE SURGERY SOLD: 03/12/2020 [facility] 100 mg 03/12/2020 12:00:00 AM EST tablet 30 TAKE ONE TABLET BY MOUTH EVERY DAY TAKE ONE TABLET BY MOUTH EVERY DAY SOLD: 03/12/2020 [facility] 800 mg 03/12/2020 12:00:00 AM EST tablet 60 TAKE ONE TABLET BY MOUTH THREE TIMES A DAY WITH FOOD OR MILK NEEDED TAKE ONE TABLET BY MOUTH THREE TIMES A DAY WITH FOOD OR MILK NEEDED SOLD: 03/12/2020 [facility] 5-325 mg 03/12/2020 12:00:00 AM EST tablet 20 TAKE ONE TABLET BY MOUTH EVERY 6 HOURS NEEDED MAX=4TABS/DAY TAKE ONE TABLET BY MOUTH EVERY 6 HOURS A S NEEDED MAX=4TABS/DAY SOLD: 03/12/2020 [facility] Hyoscyamine Sulfate 0.125 MG Sublingual Tablet HYOSCYAMINE S ULFATE 01/15/2020 12:00:00 AM EST tablet, sublingual 60 PLACE ONE TAB LET UNDER THE TONGUE EVERY 4 HOURS NEEDED FOR ABDOMINAL PAIN PLACE ONE TABLET UNDER THE TONGUE EVERY 4 HOURS NEEDED FOR ABDOMINAL PAIN SOLD: 01/22/2020 [facility] Hyoscyamine Sulfate 0.125 MG Sublingual Tablet Hyoscyamine S ulfate 01/15/2020 12:00:00 AM EST active M [facility] ([facility]) 1 gram 12/21/2019 12:00:00 AM EST tablet 90 TAKE ONE TABLET BY MOUTH THREE TIMES A DAY ON AN EMPTY STOMACH TAKE ONE TABLET BY MOUTH THREE TIMES A D AY ON AN EMPTY STOMACH SOLD: 12/31/2019 [facility] topiramate 50 MG Oral Tablet [Topamax] Topamax 12/16/2019 12:00:00 AM EST ORAL active [facility] ([facility]) 50 mg 12/16/2019 12:00:00 AM EST tablet 30 TAKE ONE TABLET BY MOUTH EVERY DAY, ALONG WITH 100MG DOSE TAKE ONE TABLET BY MOUTH EVERY DAY, MARIKA G WITH 100MG DOSE SOLD: 02/12/2020 [facility] 50 mg 12/16/2019 12:00:00 AM EST tablet 30 TAKE ONE TABLET BY MOUTH EVERY DAY, ALONG WITH 100MG DOSE TAKE ONE TABLET BY MOUTH EVERY DAY, MARIKA G WITH 100MG DOSE SOLD: 03/12/2020 [facility] 50 mg 12/16/2019 12:00:00 AM EST tablet 30 TAKE ONE TABLET BY MOUTH EVERY DAY, ALONG WITH 100MG DOSE TAKE ONE TABLET BY MOUTH EVERY DAY, MARIKA G WITH 100MG DOSE SOLD: 12/18/2019 [facility] 10 mg 12/11/2019 12:00:00 AM EDT capsule 120 TAKE ONE CAPSULE BY MOUTH FOUR TIMES A DAY TAKE ONE CAPSULE BY MOUTH FOUR TIMES A DAY SOLD: 12/18/2019 [facility] 1 gram 12/09/2019 12:00:00 AM EDT tablet 42 TAKE ONE TABLET BY MOUTH THREE TIMES A DAY BEFORE MEALS FOR 14 DAYS TAKE ONE TABLET BY MOUTH THREE TIMES A D AY BEFORE MEALS FOR 14 DAYS SOLD: 12/09/2019 [facility] 10 mg 12/05/2019 12:00:00 AM EDT capsule 28 TAKE ONE CAPSULE BY MOUTH FOUR TIMES A DAY NEEDED TAKE ONE CAPSULE BY MOUTH FOUR TIMES A DAY NEEDED S OLD: 12/05/2019 [facility] 4 mg 12/05/2019 12:00:00 AM EDT tablet,disintegrating 1 2 DISSOLVE ONE TABLET ON TONGUE THREE TIMES A DAY NEEDED DISSOLVE ONE TABLET ON TONGUE THREE TIME S A DAY NEEDED SOLD: 12/05/2019 [facility] 875-125 mg 11/09/2019 12:00:00 AM EDT tablet 20 TAKE ONE TABLET BY MOUTH TWICE A DAY FOR 10 DAYS TAKE ONE TABLET BY MOUTH TWICE A DAY FOR 10 DAYS SOLD: 11/09/2019 [facility] Citalopram 40 MG Oral Tablet CITALOPRAM HYDROBROMIDE 09/25/2019 12:00:00 AM EDT tablet 30 TAKE ONE TABLET BY MOUTH EVERY D AY TAKE ONE TABLET BY MOUTH EVERY DAY SOLD: 02/12/2020 [facility] Citalopram 40 MG Oral Tablet CITALOPRAM HYDROBROMIDE 09/25/2019 12:00:00 AM EDT tablet 30 TAKE ONE TABLET BY MOUTH EVERY D AY TAKE ONE TABLET BY MOUTH EVERY DAY SOLD: 03/12/2020 [facility] 40 mg 09/25/2019 12:00:00 AM EDT tablet 30 TAKE ONE TABLET BY MOUTH EVERY DAY TAKE ONE TABLET BY MOUTH EVERY DAY SOLD: 09/26/2019 [facility] Citalopram 40 MG Oral Tablet CITALOPRAM HYDROBROMIDE 09/25/2019 12:00:00 AM EDT tablet 30 TAKE ONE TABLET BY MOUTH EVERY D AY TAKE ONE TABLET BY MOUTH EVERY DAY SOLD: 11/29/2019 [facility] Citalopram 40 MG Oral Tablet CITALOPRAM HYDROBROMIDE 09/25/2019 12:00:00 AM EDT tablet 30 TAKE ONE TABLET BY MOUTH EVERY D AY TAKE ONE TABLET BY MOUTH EVERY DAY SOLD: 12/31/2019 [facility] Citalopram 40 MG Oral Tablet CITALOPRAM HYDROBROMIDE 09/25/2019 12:00:00 AM EDT tablet 30 TAKE ONE TABLET BY MOUTH EVERY D AY TAKE ONE TABLET BY MOUTH EVERY DAY SOLD: 10/28/2019 [facility] 100 mg 08/06/2019 12:00:00 AM EDT tablet 30 TAKE ONE TABLET BY MOUTH EVERY DAY TAKE ONE TABLET BY MOUTH EVERY DAY SOLD: 11/29/2019 [facility] 100 mg 08/06/2019 12:00:00 AM EDT tablet 30 TAKE ONE TABLET BY MOUTH EVERY DAY TAKE ONE TABLET BY MOUTH EVERY DAY SOLD: 02/12/2020 [facility] 100 mg 08/06/2019 12:00:00 AM EDT tablet 30 TAKE ONE TABLET BY MOUTH EVERY DAY TAKE ONE TABLET BY MOUTH EVERY DAY SOLD: 12/31/2019 [facility] 100 mg 08/06/2019 12:00:00 AM EDT tablet 30 TAKE ONE TABLET BY MOUTH EVERY DAY TAKE ONE TABLET BY MOUTH EVERY DAY SOLD: 10/28/2019 [facility] 100 mg 08/06/2019 12:00:00 AM EDT tablet 30 TAKE ONE TABLET BY MOUTH EVERY DAY TAKE ONE TABLET BY MOUTH EVERY DAY SOLD: 09/26/2019 [facility] 100 mg 08/06/2019 12:00:00 AM EDT tablet 30 TAKE ONE TABLET BY MOUTH EVERY DAY TAKE ONE TABLET BY MOUTH EVERY DAY SOLD: 08/19/2019 [facility] 137 mcg (0.1 %) 06/09/2019 12:00:00 AM EDT aerosol,spray 30 SPRAY 1-2 SPRAYS IN EACH NOSTRIL TWO TIMES A DAY FOR 10 DAYS SPRAY 1-2 SPRAYS IN EACH NOSTRIL TWO TIMES A DAY FOR 10 DAYS SOLD: 06/10/2019 [facility] 200 mg 06/09/2019 12:00:00 AM EDT capsule 30 TAKE ONE CAPSULE BY MOUTH THREE TIMES A DAY FOR 10 DAYS TAKE ONE CAPSULE BY MOUTH THREE TIMES A DAY FOR 10 DAYS SOLD: 06/10/2019 [facility] 50 mcg/actuation 06/09/2019 12:00:00 AM EDT spray,suspension 16 SPRAY 2 SPRAYS IN EACH NOSTRIL ONCE DAILY SPRAY 2 SPRAYS IN EACH NOSTRIL ONCE DAILY SOLD: 06/10/2019 [facility] 875-125 mg 05/27/2019 12:00:00 AM EDT tablet 20 TAKE ONE TABLET BY MOUTH TWICE A DAY FOR 10 DAYS TAKE ONE TABLET BY MOUTH TWICE A DAY FOR 10 DAYS SOLD: 05/27/2019 [facility] 10 mg 05/19/2019 12:00:00 AM EDT tablet 30 TAKE ONE TABLET BY MOUTH EVERY DAY TAKE ONE TABLET BY MOUTH EVERY DAY SOLD: 05/20/2019 [facility] 10 mg 04/02/2019 12:00:00 AM EST tablet 60 TAKE ONE TABLET BY MOUTH NEEDED UP TO THREE TIMES A DAY TAKE ONE TABLET BY MOUTH NEEDED UP TO THREE TIMES A DAY SOLD: 04/02/2019 [facility] 500 mg 04/02/2019 12:00:00 AM EST tablet 60 TAKE ONE TABLET BY MOUTH EVERY 12 HOURS NEEDED WITH FOOD OR MILK TAKE ONE TABLET BY MOUTH EVERY 12 HOURS NEEDED WITH FOOD OR MILK SOLD: 04/02/2019 [facility] MAGNESIUM CITRATE 03/10/2019 12:00:00 AM EST solution 296 TAKE 150MLS BY MOUTH ONCE FOR 1 DAY TAKE 150MLS BY MOUTH ONCE FOR 1 DAY SOLD: 03/11/2019 [facility] 17 gram/dose 03/07/2019 12:00:00 AM EST powder 238 DIRECTED USE 1 TABLESPOON MIXED IN 8 OUNCES OF FLUID BY MOUTH ON A DAILY BASIS DIRECTED USE 1 TABLESPOON MIXED IN 8 OUNCES OF FLUID BY MOUTH ON A DAILY BASIS SOLD: 03/08/2019 [facility] 100 mg 02/19/2019 12:00:00 AM EST tablet 30 TAKE ONE TABLET BY MOUTH EVERY DAY TAKE ONE TABLET BY MOUTH EVERY DAY SOLD: 06/10/2019 [facility] 40 mg 02/19/2019 12:00:00 AM EST tablet 30 TAKE ONE TABLET BY MOUTH EVERY DAY TAKE ONE TABLET BY MOUTH EVERY DAY SOLD: 05/08/2019 [facility] 100 mg 02/19/2019 12:00:00 AM EST tablet 30 TAKE ONE TABLET BY MOUTH EVERY DAY TAKE ONE TABLET BY MOUTH EVERY DAY SOLD: 03/30/2019 [facility] 40 mg 02/19/2019 12:00:00 AM EST tablet 30 TAKE ONE TABLET BY MOUTH EVERY DAY TAKE ONE TABLET BY MOUTH EVERY DAY SOLD: 08/19/2019 [facility] 40 mg 02/19/2019 12:00:00 AM EST tablet 30 TAKE ONE TABLET BY MOUTH EVERY DAY TAKE ONE TABLET BY MOUTH EVERY DAY SOLD: 07/19/2019 [facility] 100 mg 02/19/2019 12:00:00 AM EST tablet 30 TAKE ONE TABLET BY MOUTH EVERY DAY TAKE ONE TABLET BY MOUTH EVERY DAY SOLD: 05/08/2019 [facility] 40 mg 02/19/2019 12:00:00 AM EST tablet 30 TAKE ONE TABLET BY MOUTH EVERY DAY TAKE ONE TABLET BY MOUTH EVERY DAY SOLD: 06/10/2019 [facility] 100 mg 02/19/2019 12:00:00 AM EST tablet 30 TAKE ONE TABLET BY MOUTH EVERY DAY TAKE ONE TABLET BY MOUTH EVERY DAY SOLD: 02/19/2019 [facility] 100 mg 02/19/2019 12:00:00 AM EST tablet 30 TAKE ONE TABLET BY MOUTH EVERY DAY TAKE ONE TABLET BY MOUTH EVERY DAY SOLD: 07/19/2019 [facility] 40 mg 02/19/2019 12:00:00 AM EST tablet 30 TAKE ONE TABLET BY MOUTH EVERY DAY TAKE ONE TABLET BY MOUTH EVERY DAY SOLD: 03/30/2019 [facility] 40 mg 02/19/2019 12:00:00 AM EST tablet 30 TAKE ONE TABLET BY MOUTH EVERY DAY TAKE ONE TABLET BY MOUTH EVERY DAY SOLD: 02/19/2019 [facility] 180 mg 02/18/2019 12:00:00 AM EST capsule 30 TAKE ONE CAPSULE BY MOUTH THREE TIMES A DAY TAKE ONE CAPSULE BY MOUTH THREE TIMES A DAY SOLD: 02/19/2019 [facility] 20 mg 02/17/2019 12:00:00 AM EST tablet 10 TAKE ONE TABLET BY MOUTH EVERY DAY TAKE ONE TABLET BY MOUTH EVERY DAY SOLD: 02/19/2019 [facility] 50-325-40 mg 02/12/2019 12:00:00 AM EST tablet 30 TAKE ONE TABLET BY MOUTH AT ONSET OF UNCONTROLLED MIGRAINE MAXIMUM DAILY DOSE = 2 TABLETS TAKE ONE TABLET BY MOUTH AT ONSET OF UNCONTROLLED MIGRAINE MAXIMUM DAILY DOSE = 2 TABLETS SOLD: 02/19/2019 [facility] 40 mg 01/24/2019 12:00:00 AM EST tablet 30 TAKE ONE TABLET BY MOUTH EVERY DAY TAKE ONE TABLET BY MOUTH EVERY DAY SOLD: 01/25/2019 [facility] 100 mg 08/06/2018 12:00:00 AM EDT tablet 30 TAKE ONE TABLET BY MOUTH EVERY DAY MAXIMUM DAILY DOSE = 1 TAKE ONE TABLET BY MOUTH EVERY DAY MAXIM UM DAILY DOSE = 1 SOLD: 01/25/2019 [facility] Insurance Providers Payer name Policy type / Coverage type Policy ID Covered green party ID Covered green party's relationship to jenkins Policy Jenkins Plan Information [facility] COMMUN[facility] PLAN [facility] [id number] SP [id number] [facility] PLAN [facility] [id number] SP [id number] [facility] [id number] S [id number] [facility] MEDICAID [id number] S [id number] [facility] MEDICAID [id number] S [id number] [facility] MEDICAID [id number] S [id number] [facility] MEDICAID [id number] S [id number] [facility] MEDICAID [id number] S [id number] [facility] MEDICAID [id number] S [id number] [facility] [id number] S [id number] MEDICAID [id number] S [id number] [facility](MCAID) O [id number] S [id number] [facility] PLAN [facility] [id number] SP [id number] MEDICAID [id number] SP [id number] [facility] MEDICAID [id number] S [id number] SELF PAY ONLY SP [facility](MCAID) O [id number] S [id number] [facility] PLAN [facility] [id number] SP [id number] SELF PAY ONLY [id number] SP [id number] [facility] Commercial [id number] Self [id number] [facility] [id number] S [id number] [facility] Commercial [id number] Self [id number] [facility] [id number] S [id number] [facility] MEDICAID [id number] S [id number] [facility] MEDICAID [id number] S [id number] [facility] (HMO) [id number] Self [id number] [employer] MEDICAID [place] HMO [id number] S [id number] [employer] [facility] COMM [id number] S [id number] SELF PAY SP [id number] S [id number] [facility]Ess PLS Commercial [id number] Self [id number] [facility](MCAID) O [id number] S [id number] [facility] [place]/Ess PLS Commercial [id number] Self [id number] United [facility]/Community [facility] [employer] (HMO) Self [employer] MEDICAID [place] HMO [id number] S [id number] Community Plan - [facility] Commercial Self United [facility]/Community [facility] Maintenance [employer] (HMO) Self [employer] Commercial Self D Managed Care [employer] P [id number] S [id number] Medicaid Dental S [id number] S [id number] Medicaid Dental S UNAVAILABLE S UN AVAILABLE MEDICAID P [id number] S [id number] MEDICAID [place] [id number] S [id number] Problems, Conditions, and Diagnoses Code Display Name Description Problem Type Effective Dates Data Source(s) 91467298 Irritable bowel syndrome Irritable bowel syndrome Prob twila 01/15/2020 12:00:00 AM EST [facility] ([facility]) N93.9 [id number] Abnormal uterine bleeding (AUB) Problem 01/06/2020 12:00:00 AM EST eCW1 ([facility]) K58.2 [id number] Irritable bowel syndrome with tate th constipation and diarrhea Problem 01/06/2020 12:00:00 AM EST eCW1 ([facility]) F43.23 Adjustment disorder with mixed anxiety a nd depressed mood Adjustment Disorder, With mixed anxiety and depressed mood Condition 2019 12:00:00 AM EDT [facility] ([facility]) F41.8 Other specified anxiety disorders OTHER SPECIFIE D ANXIETY DISORDERS Diagnosis 12/23/2019 10:00:00 AM EST [facility] N94.6 Dysmenorrhea, unspecified DYSMENORRHEA, UNSPECIFIED Di agnosis 12/16/2019 01:53:00 PM [facility] E66.9 Obesity, unspecified OBESITY, UNSPECIFIED Diagnosis 12/16/2019 01:53:00 PM [facility] R10.13 Epigastric pain EPIGASTRIC PAIN Diagnosis 12/16/2019 01:5 3:00 PM [facility] R10.84 Generalized abdominal pain GENERALIZED ABDOMINAL PAIN Diagnosis 12/16/2019 01:53:00 PM [facility] Z79.899 Other intermodal dispatcher (current) drug therapy O THER HALF-WAY (CURRENT) DRUG THERAPY Diagnosis 12/05/2019 03:22:00 PM [facility] K58.9 Irritable bowel syndrome without diarrhe a IRRITABLE BOWEL SYNDROME WITHOUT DIARRHEA Diagnosis 12/05/2019 03:22:00 PM [facility] Z71.89 Other specified counseling OTHER SPECIFIED COUNSELING Diagnosis 11/25/2019 10:54:00 AM [facility] Z23 Encounter for immunization ENCOUNTER FOR IMMUNIZATION Diagnosis 11/25/2019 10:54:00 AM [facility] R19.5 Other fecal abnormalities OTHER FECAL ABNORMALITIES Di agnosis 11/25/2019 10:54:00 AM [facility] R11.0 Nausea NAUSEA Diagnosis 11/25/2019 10:54:00 AM [facility] R14.0 Abdominal distension (gaseous) ABDOMINAL DISTENSION (G ASEOUS) Diagnosis 11/25/2019 10:54:00 AM [facility] K92.1 Melena MELENA Diagnosis 11/25/2019 10:54:00 AM [facility] K58.2 MIXED IRRITABLE BOWEL SYNDROME MIXED IRRITABLE BOWEL S YNDROME Diagnosis 11/25/2019 10:54:00 AM [facility] R09.82 Postnasal drip POSTNASAL DRIP Diagnosis 05/19/2019 10:53: 00 AM [facility] N85.8 Other specified noninflammatory disorder s of uterus OTHER SPECIFIED NONINFLAMMATORY DISORDERS OF UTERU Diagnosis 04/11/2019 08:00:00 AM [facility] N83.02 FOLLICULAR CYST OF LEFT OVARY FOLLICULAR CYST OF LEFT OVARY Diagnosis 04/11/2019 08:00:00 AM [facility] N83.01 FOLLICULAR CYST OF RIGHT OVARY FOLLICULAR CYST OF RIGH T OVARY Diagnosis 04/11/2019 08:00:00 AM [facility] D25.9 Leiomyoma of uterus, unspecified LEIOMYOMA OF UT ERUS, UNSPECIFIED Diagnosis 03/14/2019 09:00:00 AM [facility] N85.4 Malposition of uterus MALPOSITION OF UTERUS Diagnosis 03/14/2019 09:00:00 AM [facility] Z76.89 Persons encountering health services in other specified circumstances PERSONS ENCOUNTERING HEALTH SERVICES IN OTH CIRCUM Diagnosis 09:04:00 AM [facility] Z28.21 Immunization not carried out because of patient refusal IMMUNIZATION NOT CARRIED OUT BECAUSE OF PATIENT RE Diagnosis 03/07/2019 09:04:00 AM [facility] N92.6 Irregular menstruation, unspecified IRREGULAR ME NSTRUATION, UNSPECIFIED Diagnosis 03/07/2019 09:04:00 AM [facility] Z13.220 Encounter for screening for lipoid disor ders ENCOUNTER FOR SCREENING FOR LIPOID DISOR Diagnosis 03/07/2019 09:04:[facility] R[facility]32 Left lower quadrant pain LEFT LOWER QUADRANT PAIN Diag nosis 03/07/2019 09:04:00 AM [facility] Surgeries/Procedures Procedure Description Date Indications Data Source(s) [id number]"Psychotherapy 0 12:00:00 AM EDT - 07/23/2019 12:00:00 AM EDT [facility] ([facility]) [id number]"Psychotherapy 07/22/2019 12:00:00 AM EDT [facility] ([facility]) TEMPMHCTelemed 20" psychotherapy 020 12:00:00 AM EDT - 06/10/2019 12:00:00 AM EDT [facility] ([facility]) TEMPMHCTelemed 20" psychotherapy 06/10/2019 12:00:00 A M EDT [facility] ([facility]) Psychiatric Diagnostic Evaluation (Non-Medical) 05/02/2019 12:00:00 AM EDT - 05/02/2019 12:00:00 AM EDT [facility] ([facility]) Psychiatric Diagnostic Evaluation (Non-Medical) 2019 12:00:00 AM EDT [facility] ([facility]) Psychiatric Diagnostic Evaluation (Non-Medical) 04/23/2019 12:00:00 AM EDT - 04/23/2019 12:00:00 AM EDT [facility] ([facility]) Psychiatric Diagnostic Evaluation (Non-Medical) 2019 12:00:00 AM EDT [facility] ([facility]) Psychiatric Diagnostic Evaluation (Non-Medical) 04/16/2019 12:00:00 AM EST - 04/16/2019 12:00:00 AM EST [facility] ([facility]) Psychiatric Diagnostic Evaluation (Non-Medical) 2019 12:00:00 AM EST [facility] ([facility]) Extended Individual Psychotherapy - 45 min 04/01/2019 12:00:00 AM EST - 04/01/2019 12:00:00 AM EST [facility] ([facility]) Extended Individual Psychotherapy - 45 min 0 12:00:00 AM EST [facility] ([facility]) Results ID Date Data Source [id number] 03/10/2020 12:00:00 PM EST [facility] Name Value Range Interpretation Code Description Data Carolina rce(s) Supporting Document(s) SARS coronavirus 2 RNA Not Detected [facility] This lab was ordered by [facility] and reported by [facility]. ID Date Data Source [id number] 01/07/2020 12:00:00 AM EST [facility] Name Value Range Interpretation Code Description Data Carolina rce(s) Supporting Document(s) SARS coronavirus 2 RNA [Presence] in Res piratory specimen by KIM with probe detection [facility] This lab was ordered by Charlie Jorgensen and reported by [facility]. ID Date Data Source [id number] 12/11/2019 08:42:00 AM EDT [facility] Patient: JONATHAN ROBLERO Observatio n Report - [facility]VisitID: [id number] [place] [address] [phone], FRegistration Date/Time: 12/05/2019 14:08 Weight:103.8 kg (S). Height/Length:66 inches (S). BMI:37 PAST HISTORYProblems:Irritable bowel syndrome (disorder) [Chronic].Anxiety Reaction [Chronic].Migraine Headache [Chronic].Gastroesophageal Reflux Disease [Chronic]. Additional Surgeries:Tubal Ligation. Medications:Topamax Oral (Tablet 100 mg) 1 tablet, daily, last dose today.CeleXA Oral (Tablet 40 mg) 1 tablet, daily, last dose today. Allergies:Depo-Medrol.(hives)Gabapentin. (lost motor function pt states)Hydroxyzine.(Anaphylaxis)Imitrex. (disorientation)Treximet.(Anaphylaxis). FAMILY HISTORYNegative. No significant family medical history. (Electronically signed by Francisco Khan 12/05/2019 18:57) Addenda for JONATHAN ROBLERO VisitID: [id number] Date: 12/11/2019 8:40Urine culture results came back positive for beta hemolytic streptococcus. Provider advised antibiotic only of pt had any urinary symptoms. Called pt, pt asymptomatic at this time. She has a f/u appointment with her healthcare provider soon and is on the schedule to see gastroenterology. Asked pt to return to the ER as needed. (Electronically signed by Irina Nolasco R.N. - 12/11/2019 8:40) Name Value Range Interpretation Code Description Data Carolina rce(s) Supporting Document(s) ID Date Data Source [id number] 12/07/2019 06:05:00 AM EDT [facility] Patient: JONATHAN ROBLERO Observatio n Report - [facility].VisitID: [id number] [place] [address] [phone], FRegistratrinity health Date/Time: 12/05/2019 14:08 Weight:103.8 kg (S). Height/Length:66 inches (S). BMI:37 PAST HISTORYProblems:Irritable bowel syndrome (disorder) [Chronic].Anxiety Reaction [Chronic].Migraine Headache [Chronic].Gastroesophageal Reflux Disease [Chronic]. Additional Surgeries:Tubal Ligation. Medications:Topamax Oral (Tablet 100 mg) 1 tablet, daily, last dose today.CeleXA Oral (Tablet 40 mg) 1 tablet, daily, last dose today. Allergies:Depo-Medrol.(hives)Gabapentin. (lost motor function pt states)Hydroxyzine.(Anaphylaxis)Imitrex. (disorientation)Treximet.(Anaphylaxis). FAMILY HISTORYNegative. No significant family medical history. (Electronically signed by Francisco Khan 12/05/2019 18:57) Name Value Range Interpretation Code Description Data [facility] rce(s) Supporting Document(s) ID Date Data Source [id number] 12/05/2019 04:57:00 [facility] OF [facility]AMINATION: 12/05/2019 15:44 ED T ABD/PEL WITH IV CONTRAST HISTORY: Pain TECHNIQUE: This CT exam was performed using the following dose reduction techniques:automated exposure control, adjustment of mA and/or kV according to thepatient's size, and use of iterative reconstruction technique. Standard contiguous axial spiral imaging was obtained from the dome of thediaphragms through the symphysis pubis without oral contrast and withoutintravenous contrast administration and with coronal reformatting. FINDINGS: Lower thorax: Unremarkable ABDOMEN: Liver: UnremarkableGallbladder and bile ducts: UnremarkablePancreas: UnremarkableSpleen: UnremarkableAdrenals: UnremarkableKidneys and ureters: UnremarkableStomach and bowel: UnremarkableAppendix: Normal PELVIS: Bladder: UnremarkableReproductive: U nremarkable No free fluid or free air IMPRESSION: Unremarkable CT scan of the abdomen and pelvis Electronically signed in PS360 by: Verona Courtney M.D. 12/05/2019 16:51 EDT Name Value Range Interpretation Code Description Data [facility] rce(s) Supporting Document(s) ID Date Data Source [id number] 12/08/2019 10:06:00 AM EDT [facility] Name Value Range Interpretation Code Description Data [facility] rce(s) Supporting Document(s) URINE CULTURE, ROUTINE Final report . [facility] UC RESULT1 Comment . [facility] Beta hemolytic Streptococcus, group B10, 000-25,000 colony forming units per mLPenicillin and ampicillin are drugs of choice for treatmentof beta-hemolytic streptococcal infections. Susceptibilitytesting of penicillins and other beta- lactam agentsapproved by the FDA for treatment of beta-hemolyticstreptococcal infections need not be performed routinelybecause nonsusceptible isolates are extremely rare in anybeta-hemolytic streptococcus and have not been reportedfor Streptococcus pyogenes (group A). (CLSI)Performed at: - [facility] [address] [id number] Director: Susi Torre MD, Phone: [phone] ID Date Data Source [id number] 12/08/2019 10:05:00 AM EDT [facility] Name Value Range Interpretation Code Description Data [place] rce(s) Supporting Document(s) Urine Culture, Routine Final report Abnormal (applies to non-numeric results) [facility] ID Date Data Source [id number] 12/08/2019 10:05:00 AM EDT [facility] Name Value Range Interpretation Code Description Data [place] rce(s) Supporting Document(s) Result 1 Abnormal (applies to non-numeric results ) [facility] Beta hemolytic Streptococcus, group B10, 000-25,000 colony forming units per mLPenicillin and ampicillin are drugs of choice for treatment ofbeta-hemolytic streptococcal infections. Susceptibility testing ofpenicillins and other beta- lactam agents approved by the FDA fortreatment of beta-hemolytic streptococcal infections need not beperformed routinely because nonsusceptible isolates are extremelyrare in any beta-hemolytic streptococcus and have not been reportedfor Streptococcus pyogenes (group A). (CLSI) ID Date Data Source [id number] 12/05/2019 02:59:00 PM EDT [facility] TSYS[facility] [id number] Name Value Range Interpretation Code Description Data [place] rce(s) Supporting Document(s) URINE RBC 1-3 /hpf 0-3 [facility] URINE WBC 3-5 /hpf 0-5 [facility] URINE EPITHELIAL CELLS 3+ /hpf 0 [facility] URINE BACTERIA 2+ NONE SEEN [facility] ID Date Data Source [id number] 12/05/2019 02:47:00 PM EDT [facility] TSYS[facility] [id number] Name Value Range Interpretation Code Description Data [place] rce(s) Supporting Document(s) URINE COLOR. YELLOW [facility] URINE APPEARANCE CLEAR [facility] URINE GLUCOSE (UA) NEGATIVE mg/dL NEGATIVE [facility] URINE BILIRUBIN NEGATIVE NEGATIVE [facility] URINE KETONE NEGATIVE mg/dL [facility]GATIVE [facility] SPECIFIC GRAV[facility],URINE 1.015 1.001-1.035 [facility] URINE BLOOD 3+(LARGE) NEGATIVE [facility] PH,URINE 7.0 5.0-9.0 [facility] URINE PROTEIN NEGATIVE mg/dL NEGATIVE [facility] UR[facility] UROBILINOGEN NORMAL(0.2-1) mg/dL 0-1 [facility] URINE NITRATE NEGATIVE NEGATIVE [facility] URINE LEUKOCYTE ESTERASE 1+(SMALL) NEGATIVE [facility] ID Date Data Source [id number] 12/05/2019 03:26:00 PM EDT [facility] Name Value Range Interpretation Code Description Data [place] rce(s) Supporting Document(s) LIPASE 117 U/L 73-393 [facility] ID Date Data Source [id number] 12/05/2019 03:26:00 PM [facility] l Name Value Range Interpretation Code Description Data [place] rce(s) Supporting Document(s) MAGNESIUM 2.0 mg/dL 1.8-2.4 [facility] ID Date Data Source [id number] 12/05/2019 03:26:00 PM EDT [facility] Name Value Range Interpretation Code Description Data [place] rce(s) Supporting Document(s) GLUCOSE 83 mg/dL 74-106 [facility] BLOOD UREA NITROGEN 10 mg/dL 7-18 [facility] CREATININE 0.9 mg/dL 0.6-1.0 [facility] SODIUM 136 mmol/L 136-145 [facility] POTASSIUM 4.0 mmol/L 3.5-5.1 [facility] CHLORIDE 102 mmol/L 98-107 [facility] CO2 23 mmol/L 21-32 [facility] CALCIUM 8.7 mg/dL 8.5-10.1 [facility] ANION GAP 11.0 mmol/L 5-12 [facility] GLOMERULAR FILTRATION RATE 70 mL/min [facility] GFR IS CALCULATED IN mL/min/1.73m2 ALDO L FUNCTION: >90MILDLY DECREASED: 60-89MILDY TO MODERATELY DECREASED: 45-59 MODERATELY TO SEVERELY DECREASED: 30-44SEVERELY DECREASED: 15-29RENAL FAILURE: <15 AST 22 U/L 15-37 [facility] ALT 21 U/L 12-78 [facility] ALKALINE PHOSPHATASE 104 U/L 46-116 [facility] pital TOTAL BILIRUBIN 0.4 mg/dL 0.2-1.0 [facility] TOTAL PROTEIN 7.6 g/dl 6.4-8.2 [facility] ALBUMIN 3.3 gm/dL 3.4-5.0 L [facility] ID Date Data Source [id number] 12/05/2019 03:05:00 PM EDT [facility] Name Value Range Interpretation Code Description Data [place] rce(s) Supporting Document(s) PARTIAL THROMBOPLASTIN TIME 25.9 SECONDS 21.4-30.2 [facility] ID Date Data Source [id number] 12/05/2019 03:05:00 PM EDT [facility] Name Value Range Interpretation Code Description Data [place] rce(s) Supporting Document(s) PROTHROMBIN TIME (PATIENT) 10.9 SECONDS 9.2-11.6 [facility] INR 1.05 0.87-1.06 [facility] ID Date Data Source [id number] 12/05/2019 02:48:00 PM EDT [facility] TSYSORDER [id number] Name Value Range Interpretation Code Description Data [place] rce(s) Supporting Document(s) WHITE BLOOD COUNT 9.7 K/mm3 4.0-10.0 [facility] al RED BLOOD COUNT 4.43 M/mm3 4.00-5.50 [facility] HEMOGLOBIN 13.0 gm/dL 12.0-16.0 [facility] HEMATOCRIT 39.1 % 36.0-48.8 [facility] MEAN CELL VOLUME 88.3 fl 80-96 [facility] MEAN CORPUSCULAR HEMOGLOBIN 29.3 pg 27.0-31.0 [facility] MEAN CORPUSCULAR HGB CONC 33.2 g/dl 32.0-36.0 [facility] RED CELL DISTRIBUTION WIDTH 13.2 % 10.0-14.5 [facility] PLATELET COUNT 267 K/mm3 172-450 [facility] MEAN PLATELET VOLUME 9.5 fl 9.0-13.0 [facility] pital GRAN % 59.7 % 50-80.0 [facility] IG% 0.4 % 0.0-0.2 H [facility] LYMPH % 31.8 % 25.0-50.0 [facility] MONO % 5.4 % 2.0-10.0 [facility] EOS % 2.4 % 0-5.0 [facility] BASO % 0.3 % 0.0-2.0 [facility] GRAN # 5.8 K/mm3 2.0-8.00 [facility] IG# 0.0 K/mm3 0.0-0.2 [facility] LYMPH # 3.1 K/mm3 1.0-5.0 [facility] MONO # 0.5 K/mm3 0.10-1.20 [facility] EOS # 0.2 K/mm3 0.0-0.5 [facility] BASO # 0.0 K/mm3 0.0-0.2 [facility] ID Date Data Source [id number] 11/25/2019 02:56:00 PM EDT [facility] Name Value Range Interpretation Code Description Data [place] rce(s) Supporting Document(s) Campylobacter Not Detected Detected Not [facility] Clostridium difficile toxin AB Not Detected Detected [facility] Due to the high asymptomatic carriage ra monica, especiallyin young children, the clinical relevance of the detectionof toxigenic C. difficile from stool should be consideredin the context of other clinical findings, patient age, andrisk factores which include hospitalization and antibioticexposure. Plesiomonas shigelloides Not Detected Detected Not [facility] Salmonella Not Detected Detected Not [facility] Vibrio Not Detected Detected Not [facility] Vibrio cholerae Not Detected Detected Not [facility] Yersinia enterocolitica Not Detected Detected [facility] Enteroaggregative E. coli Not Detected Detected [facility] Enteropathogenic E. coli Not Detected Detected [facility] Enterotoxigenic E. coli Not Detected Detected [facility] Shiga-like toxin-prod E. coli Not Detected Detected [facility] E. coli O157 Not Applicable Detected Not [facility] Shigella/Enteroinvasive E coli Not Detected Detected [facility] Cryptosporidium Not Detected Detected Not [facility] Cyclospora cayetanensis Not Detected Detected [facility] Entamoeba histolytica Not Detected Detected [facility] Giardia Lamblia Not Detected Detected [facility] Adenovirus F 40/41 Not Detected Detected [facility] Astrovirus Not Detected Detected Not [facility] Norovirus GI/GII Not Detected Detected [facility] Rotavirus A Not Detected Detected [facility] Sapovirus Not Detected Detected [facility] The Above results have been determined b y using the [employer] system.Robert Applebaum MD is an automated in vitro diagnostic system thatutilizes nested multiplex Polymerase Chain Reaction (PCR)and high-resolution melting analysis to detect and identifymultiple nucleic acid targets from clinical specimens. ID Date Data Source [id number] 11/25/2019 01:34:00 PM EDT [facility] Name Value Range Interpretation Code Description Data [place] rce(s) Supporting Document(s) STOOL FOR OCCULT BLOOD NEGATIVE NEGATIVE [facility] ID Date Data Source [id number] 04/11/2019 08:52:00 AM EST [facility] DATED ON EXAMINATION: 04/11/2019 8:02 EST ENDOVAGINAL/TRANSVAGINAL HISTORY: Follicular cyst Real-time ultrasound imaging was performed utilizing B- mode/bazan scale and colorDoppler imaging where applicable. There is a 1 cm leiomyoma of uterine fundus. Uterus is retroverted. Endometrialstripe is 1.3 cm slightly above normal range likely related to stage ofmenstrual cycle. On the right side there is a 3 x 2.5 x 3 cm follicular cyst the previously notedseptated cyst on the left side has resolved since the prior study of 03/14/2019 IMPRESSION: Interval resolution of previously noted left-sided septated follicular cyst. 3 x 2.5 x 3 cm follicular cyst of the right ovary without torsion. Small amount of fluid within the cul-de-sac. Endometrial stripe is slightly above normal range likely related to stage ofmenstrual cycle.. Electronically signed in PS360 by: Verona Courtney M.D. 04/11/2019 8:47 EST Name Value Range Interpretation Code Description Data [facility] Document(s) ID Date Data Source [id number] 04/11/2019 08:51:00 AM EST [facility] DATED ON EXAMINATION: 04/11/2019 7:53 EST PELVIC COMPLETE TRANS ABDOMEN HISTORY: Follicular cyst Real-time ultrasound imaging was performed utilizing B- mode/bazan scale and colorDoppler imaging where applicable. The deep pelvic structures are not clearly seen on transabdominal study withtherefore proceeded with transvaginal ultrasound. IMPRESSION: Poor visualization of deep pelvic structures on transabdominal study.. Electronically signed in PS360 by: Verona Courtney M.D. 04/11/2019 8:46 EST Name Value Range Interpretation Code Description Data [place] rce(s) Supporting Document(s) ID Date Data Source [id number] 03/14/2019 09:56:00 AM EST [facility] DATED ON EXAMINATION: 03/14/2019 8:47 EST PELVIC COMPLETE TRANS ABDOMEN HISTORY: Abnormal cycles Real-time ultrasound imaging was performed utilizing B- mode/bazan scale and colorDoppler imaging where applicable. Uterus is retroverted. Endometrial stripe is 0.7 cm. The ovaries are not clearlyseen on transabdominal study. IMPRESSION: Nonvisualization of the ovaries on transabdominal study.. Electronically signed in PS360 by: Verona Courtney M.D. 03/14/2019 9:50 EST Name Value Range Interpretation Code Description Data [place] rce(s) Supporting Document(s) ID Date Data Source [id number] 03/14/2019 09:56:00 AM EST [facility] DATED ON EXAMINATION: 03/14/2019 9:04 EST ENDOVAGINAL/TRANSVAGINAL HISTORY: Abnormal cycles Real-time ultrasound imaging was performed utilizing B- mode/baazn scale and colorDoppler imaging where applicable. Uterus is retroverted. Endometrial stripe is 0.7 cm. There is a 2.5 cm septatedfollicular cyst of left ovary. IMPRESSION: Retroverted uterus. 2.5 cm septated follicular cyst of left ovary. 1 cm leiomyoma of uterine fundus.. Electronically signed in PS360 by: Verona Courtney M.D. 03/14/2019 9:49 EST Name Value Range Interpretation Code Description Data [place] rce(s) Supporting Document(s) ID Date Data Source [id number] 03/07/2019 11:43:00 AM EST [facility] DATE OF EXAMINATION: 03/07/2019 10:18 EST TECHNIQUE: 2 views of the abdomen were obtained. HISTORY: Left lower quadrant pain A small amount of air is present in the intestine. There are no air-fluid levelsor dilated loops of intestine. There is no pneumoperitoneum. Surgical clips arepresent in the pelvis.. IMPRESSION: Nonspecific bowel gas pattern. Electronically signed in PS360 by: Conrado Villeda M.D. 03/07/2019 11:37 EST Name Value Range Interpretation Code Description Data [place] rce(s) Supporting Document(s) ID Date Data Source [id number] 03/07/2019 11:03:00 AM EST [facility] Name Value Range Interpretation Code Description Data [place] rce(s) Supporting Document(s) CHOLESTEROL 214 mg/dL 0-200 H [facility] TRIGLYCERIDES 161 mg/dL 0-150 H [facility] LDL CHOLESTEROL 133 mg/dL 0-100 H [facility] HDL CHOLESTEROL 49 mg/dL 40-60 [facility] CHOL/HDL RATIO 4.4 0.0-5.0 [facility] ID Date Data Source [id number] 03/07/2019 11:03:00 AM [facility] l Name Value Range Interpretation Code Description Data [place] rce(s) Supporting Document(s) GLUCOSE 85 mg/dL 74-106 [facility] BLOOD UREA NITROGEN 16 mg/dL 7-18 [facility] CREATININE 0.9 mg/dL 0.6-1.0 [facility] SODIUM 139 mmol/L 136-145 [facility] POTASSIUM 4.4 mmol/L 3.5-5.1 [facility] CHLORIDE 103 mmol/L 98-107 [facility] CO2 24 mmol/L 21-32 [facility] CALCIUM 9.3 mg/dL 8.5-10.1 [facility] ANION GAP 12.0 mmol/L 5-12 [facility] GLOMERULAR FILTRATION RATE 70 mL/min [facility] GFR IS CALCULATED IN mL/min/1.73m2 ALDO L FUNCTION: >90MILDLY DECREASED: 60-89MILDY TO MODERATELY DECREASED: 45-59 MODERATELY TO SEVERELY DECREASED: 30-44SEVERELY DECREASED: 15-29RENAL FAILURE: <15 AST 15 U/L 15-37 [facility] ALT 20 U/L 12-78 [facility] ALKALINE PHOSPHATASE 110 U/L 46-116 [facility] pital TOTAL BILIRUBIN 0.3 mg/dL 0.2-1.0 [facility] TOTAL PROTEIN 7.3 g/dl 6.4-8.2 [facility] ALBUMIN 3.4 gm/dL 3.4-5.0 [facility] Procedure Social History Code Duration Value Status Description Data Source(s ) Smoking 02/23/2020 12:00:00 AM EST Never Smoker completed Never S moker eCW1 ([facility]) Smoking 01/06/2020 12:00:00 AM EST Never Smoker completed Never S moker eCW1 ([facility]) Smoking 07/23/2019 12:00:00 AM EDT Unknown if ever smoked comp leted Unknown if ever smoked [facility] ([facility]) Smoking 06/10/2019 12:00:00 AM EDT Unknown if ever smoked comp leted Unknown if ever smoked [facility] ([facility]) Smoking 05/02/2019 12:00:00 AM EDT Unknown if ever smoked comp leted Unknown if ever smoked [facility] ([facility]) Smoking 04/23/2019 12:00:00 AM EDT Unknown if ever smoked comp leted Unknown if ever smoked [facility] ([facility]) Smoking 04/16/2019 12:00:00 AM EST Unknown if ever smoked comp leted Unknown if ever smoked [facility] ([facility]) Smoking 04/01/2019 12:00:00 AM EST Unknown if ever smoked comp leted Unknown if ever smoked [facility] ([facility]) Vital Signs ID Date Data Source UNK Name Value Range Interpretation Code Description Data Source(s) Diastolic blood pressure 78 mm[Hg] 78 mm[Hg] W1 ([facility]) Systolic blood pressure 114 mm[Hg] 114 mm[Hg] e CW1 ([facility]) Body mass index (BMI) [Ratio] 36.96 kg/m2 36.96 kg/m2 [facility] ([facility]) Body height 66 [in_i] 66 [in_i] W1 ([facility]) Body weight 229 [lb_av] 229 [lb_av] W1 ([facility]) Body temperature 97.2 [degF] 97.2 [degF] MEDENT ([facility]) Body weight 100.246 kg 100.246 kg [facility] ([facility] Body mass index (BMI) [Ratio] 35.7 kg/m2 35.7 k g/m2 MED[facility] ([facility]) Heart rate 72 /min 72 /min [facility] ([facility]) Diastolic blood pressure 84 mm[Hg] 84 mm[Hg] MEDENT ([facility]) Systolic blood pressure 132 mm[Hg] 132 mm[Hg] M EDENT ([facility]) Body weight 221.00 [lb_av] 221.00 [lb_av] MEDEN T ([facility]) Body height 66 [in_i] 66 [in_i] MEDENT ([facility]) 5'6" Diastolic blood pressure 80 mm[Hg] 80 mm[Hg] eCW1 ([facility]) Systolic blood pressure 120 mm[Hg] 120 mm[Hg] e CW1 ([facility]) Body mass index (BMI) [Ratio] 39.09 kg/m2 39.09 kg/m2 eCW1 ([facility]) Body height 63.75 [in_i] 63.75 [in_i] eCW1 ([facility]) Body weight 102.51 kg 102.51 kg eCW1 ([facility] Body weight 226 [lb_av] 226 [lb_av] eCW1 ([facility]) Respiratory rate 16 /min 16 /min MEDENT ( [facility]) Heart rate 72 /min 72 /min MED[facility] ([facility]) Diastolic blood pressure 80 mm[Hg] 80 mm[Hg] GARRY ([facility]) Systolic blood pressure 130 mm[Hg] 130 mm[Hg] Rock PORTILLO ([facility])
--- OUTSIDE RECORDS SUMMARY | 2020-03-15 09:38 | CCD ---
Author Author [facility] Organization [facility] Address Unknown Phone Unavailable Care Team Providers Care Size Tester Name Role Phone Soniya Carrillo Unavailable PROBLEMS Type Condition ICD9-CM Code MUL91-XD Code Onset Dates Condition S tatus SNOMED Code Notes Problem Irritable bowel syndrome with both constipation and diarrh ea K58.2 Active 63812592 Problem Abnormal uterine bleeding (AUB) N93.9 Active 02797426595448 Problem Irregular menstrual cycle N92.6 Active 384541 07 Problem Migraine G43.909 Active 73331013 Problem Vaginal discharge N89.8 Active 732035859 ALLERGIES Allergen (clinical drug ingredient) Drug/Non Drug Allergy do cumented on EMR Reaction Allergy Type Onset Date Status naproxen / sumatriptan Treximet([facility] Code:[address]-71) Conf usion/fast heart beat Drug Allergy Active gabapentin Gabapentin(NDC Code:[address]-26) chest pain Drug Allergy Active medroxyprogesterone Depo-Provera(ND Code:[address]-37) ping st pain/abd. pain/rash Drug Allergy Active sumatriptan Imitrex(NDC Code:[address]-12) confusion/fast h eart beat Drug Allergy Active ENCOUNTERS from 1981 to 2020-03-03 Encounter Location Date Provider Diagnosis [facility] [place] [address] Feb, Soniya Carrillo Leiomyoma of uterus, unspecified D25.9 IMMUNIZATIONS No Information SOCIAL HISTORY Tobacco Use: Social History Observation Description Date Details (start date - stop date) Never Smoker Sex Assigned At : Social History Observation Description Sex Assigned At Unknown Language: Question Answer Notes Languages spoken: Burundian Tobacco Use: Question Answer Notes Are you a: never smoker REASON FOR REFERRAL No Information VITAL SIGNS Weight 229 lbs Feb, Height 66 in Feb, BMI 36.96 kg/m2 Feb, Blood pressure systolic 114 mm Hg Feb, Blood pressure diastolic 78 mm Hg Feb, MEDICATIONS Medication SIG (Take, Route, Frequency, Duration) Notes Start Da te End Date Status Tylenol 325 MG 1 tablet as needed Orally every 6 hrs Not-Taking Celexa 40 MG 1 tablet Orally Once a day Active Diflucan 150 MG 1 tablet Orally Once a day for 1 dose(s) 2 0 May, 2016 Not-Taking MetroGel-Vaginal 0.75 % 1 application at bedtime Vag inal Once a day for 5 day(s) May, Not-Taking Topamax 100 MG 1 tablet Orally Once a day Active Topamax 50 MG 1 tablet Orally Once a day Active Ibuprofen 200 mg 1 tablet Orally Every 4 hours as needed MDD 2400 mg Not-Taking Vitamin D (Cholecalciferol) Active Excedrin Migraine 250-250-65 MG 2 tablets Orally Once a day as needed Active PROCEDURES No Information RESULTS No Results REASON FOR VISIT ATTILA CONSULT PER [facility]GENERAL) HISTORY Type Description Date Medical History depression Medical History migraine sees jorge alberto Cho NP Medical History IBS Medical History Uterine fibroids Surgical History tubal ligation 12/25/14 Hospitalization History No Hospitalization history informati on Goals Section No Information Health Concerns No Information MEDICAL EQUIPMENT No Information MENTAL STATUS No Information FUNCTIONAL STATUS No Information ASSESSMENTS Encounter Date Diagnosis Assessment Notes Treatment Notes Treatm ent Clinical Notes Feb, Leiomyoma of uterus, unspecified (ICD-10 - D25.9 ) will obtain pelvic ultrasound. She will follow up for surgical counseling PLAN OF TREATMENT Treatment Notes Assessment Notes Clinical Notes Leiomyoma of uterus, unspecified will ob tain pelvic ultrasound. She will follow up for surgical counseling Treatment Notes Test Name Order Date [facility] Pelvis non-OB COMPLETE 2020-03-03 Next Appt Details Provider Name:Soniya Carrillo, 2020-03-05 0 1:40:00 PM, [address] [place], [address], Provider Name:Soniya Carrillo, 2020-03-15 1 1:30:00 AM, [address] [place] [address], [phone], Provider Name:Soniya Carrillo, 2020-03-24 0 8:00:00 AM, [address] [place] [address], [phone], Provider Name:Soniya Carrillo, 2020-04-26 0 1:20:00 PM, [address] [place] [address], [phone], Insurance Providers Payer Name Payer Address Payer Phone Insured Name Patient Relati onship to Insured Coverage Start Date Coverage End Date [facility] [employer] [address] [facility] [id number] JONATHAN ROBLERO self
--- OUTSIDE RECORDS SUMMARY | 2020-03-15 09:38 | CCD | Continuity of Care Document ---
Author Author [facility] Organization Unknown Address [address] [place] [address] Phone [phone] Care Team Providers Care Residential Sales Rep Name Role Phone Lokesh Gilmore AUTM [phone] Problems Description No Information Available Social History [...] Date Location Provider Dx Diagnosis Office Visit 08/06/2019 8:30a Main office - [facility].A[facility]. G43.709 Chronic migraine w/o aura, [...] ot intractable, without stat Marcella Cho, P.A.-C. 08/06/2019 G44.219 Episodic tension-type headache, not intractable Marcella Cho P.A.-C. 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 08/06/2019 F32.89 Other specified depressive episo max Marcella Cho P.A.-C. 08/06/2019 M54.2 Cervicalgia Marcella Cho P.A.-C. 08/06/2019 M54.5 Low back pain Marcella Cho P.A.-C. 08/06/2019 R20.2 Paresthesia of skin Marcella catalan P.A.-C. Plan of Treatment 12/16/2019 - Marcella Cho P.A.-C.* G44.219 Episodic tension-type headache, not intractable * [...] Description No Information Available Referrals Refer to Dr Reason for Referral Status Appt Date Karolyn Muniz M.D. Created [facility] [address] [place] [address] [phone]
[2020-03-15 10:04] LABS: HEMATOCRIT 41.6 % (36.0-47.0); MEAN CORPUSCULAR HEMOGLOBIN 28.4 pg (27.0-33.0); MEAN CORPUSCULAR HGB CONC 31.3 g/dl (32.0-36.5); PLATELET COUNT, AUTOMATED 293 10^3/uL (150-450); RED BLOOD COUNT 4.57 10^6/uL (4.00-5.40); WHITE BLOOD COUNT 9.5 10^3/uL (4.0-10.0)
[2020-03-15] MEDS ORDERED: propofoL 200 MG/20 ML VIAL As Ordered ONE ×2 (10:25→10:47)
[2020-03-15] MEDS ORDERED: dexameTHASONE 4 MG/ML 1ML VIAL (J1100 PER 1MG) As Ordered ONE ×2 (10:25→10:26)
[2020-03-15] MEDS ORDERED: MIDAZOLAM INJ 2MG/2ML VIAL (J2250 PER 1MG) As Ordered ONE (10:25)
[2020-03-15] MEDS ORDERED: LIDOCAINE 2% 100MG/5ML SDV (FOR ANES.) As Ordered ONE ×2 (10:25→10:35)
[2020-03-15] MEDS ORDERED: ROCURONIUM BROMIDE 50 MG/5 ML VIAL As Ordered ONE ×2 (10:25→13:05)
[2020-03-15] MEDS ORDERED: fentaNYL 100 MCG/2 ML INJECTION (J3010) As Ordered ONE (10:25)
[2020-03-15] MEDS ORDERED: ONDANSETRON 4MG/2ML VIAL As Ordered ONE (10:26)
[2020-03-15] MEDS ORDERED: METOCLOPRAMIDE INJ 10MG/2ML VIAL (J2765 PER 1) As Ordered ONE (10:26)
[2020-03-15] MEDS ORDERED: SUGAMMADEX SODIUM 500 MG/5 ML VIAL (BRIDION) As Ordered ONE (10:43)
[2020-03-15] MEDS ORDERED: BUPIVACAINE HCL 0.25% 30ML VIAL As Ordered ONE (11:33)
[2020-03-15] MEDS ORDERED: ceFAZolin 2 GM/D5W 50 ML IV BAG (J0690 PER 500MG) As Ordered ONE (11:47)
[2020-03-15] MEDS ORDERED: ceFAZolin SOD 2 GM in IV 1 EA IV ONE (12:00)
[2020-03-15] MEDS ORDERED: GLYCOPYRROLATE INJ 0.2 MG/ML 2 ML VIAL As Ordered ONE (12:56)
[2020-03-15] MEDS ORDERED: ACETAMINOPHEN 1000MG 100ML IV BTL (OFIRMEV) (J0131 PER 10MG) As Ordered ONE (13:24)
[2020-03-15] MEDS ORDERED: KETOROLAC 60MG 2ML VIAL As Ordered ONE (13:24)
[2020-03-15] MEDS ORDERED: LR 1,000 ML IV SCH (15:00)
[2020-03-15] MEDS ORDERED: ONDANSETRON 4MG/2ML VIAL IV PRN (15:00)
[2020-03-15] MEDS ORDERED: oxyCODONE 5MG TAB PO PRN (15:00)
[2020-03-15] MEDS ORDERED: fentaNYL 100 MCG/2 ML INJECTION (J3010) IV PRN (15:00)
[2020-03-15] MEDS ORDERED: HYDROMORPHONE HCL 0.5 MG/ 0.5 ML SYRINGE (J1170 PER 1) IV PRN (15:00)
[2020-03-15] MEDS ORDERED: METOCLOPRAMIDE INJ 10MG/2ML VIAL (J2765 PER 1) IV PRN (15:00)
[2020-03-15 15:46] VITALS: BP 105/59
[2020-03-15] MEDS ORDERED: PERCOCET 5MG/325MG TAB PO PRN ×2 (16:00)
[2020-03-15] MEDS ORDERED: PROMETHAZINE INJ 25 MG/ML VIAL (J2550) IV PRN (16:00)
[2020-03-15 16:15] VITALS: BP 104/61
[2020-03-15 16:45] VITALS: BP 105/62
[2020-03-15 17:45] VITALS: BP 105/63
[2020-03-15 18:45] VITALS: BP 111/68
[2020-03-15] MEDS: KETOROLAC 30 MG/ML 1ML VIAL IV SCH (19:49)
[2020-03-15 22:00] VITALS: BP 128/73
[2020-03-16 01:20] VITALS: O2SAT 95
[2020-03-16] MEDS: KETOROLAC 30 MG/ML 1ML VIAL IV SCH ×3 (01:53→12:58)
[2020-03-16 06:00] VITALS: BP 125/71
[2020-03-16 06:25] LABS: HEMATOCRIT 38.8 % (36.0-47.0); HEMOGLOBIN 12.2 g/dl (12.0-15.5); MEAN CORPUSCULAR HEMOGLOBIN 28.9 pg (27.0-33.0); MEAN CORPUSCULAR HGB CONC 31.4 g/dl (32.0-36.5); MEAN CORPUSCULAR VOLUME 91.9 fl (80.0-96.0); PLATELET COUNT, AUTOMATED 272 10^3/uL (150-450); RED BLOOD COUNT 4.22 10^6/uL (4.00-5.40); WHITE BLOOD COUNT 18.6 10^3/uL (4.0-10.0)
[2020-03-16 09:00] VITALS: O2SAT 95
[2020-03-16 10:00] VITALS: BP 119/74
[2020-03-16 14:00] VITALS: BP 124/67
== END 2020-03-16 16:31 | disposition home or self-care (01) ==
LOC: M SDC 09:33 → M MSPAV 15:51 → M SDC 03-16 16:31
PROVIDERS: ATTEND Obstetrics & Gynecology
DX: D25.9 Leiomyoma of uterus, unspecified (principal); N85.00 Endometrial hyperplasia, unspecified; Z79.899 Other long term (current) drug therapy
CPT/HCPCS: 36415; 58571; 81025; 85027; 86850; 86900; 86901; 88307; 96374; 96376; J0131; J0690; J1100; J1170; J1885; J2250; J2405; J2765; J3010; S2900

== ENCOUNTER → 2022-02-15 | Outpatient (REF) | payer OTHER ==
[~2022-02-15] MED LIST changes: -CITA40TA4 PO; +CITA40TA7 PO; -LR 1,000 ML IV ONE; -SIME180C PO; +SIME180C25 PO
== END ==
LOC: M PLALAB 09:55
PROVIDERS: ATTEND Nurse Practitioner Family
DX: Z11.3 Encounter for screening for infections with a predominantly sexual mode of transmission (principal); N89.8 Other specified noninflammatory disorders of vagina

== ENCOUNTER 2022-10-04 07:13 | Day surgery (SDC) | payer OTHER ==
[~2022-10-04] VITALS: Ht 167.6 cm; Wt 108.4 kg
[~2022-10-04 07:13] MED LIST changes: +IBUP1TAB6 PO; +TOPI-254 PO; -TOPI50TA9 PO; +ceFAZolin SOD 2 GM in IV 1 EA IV ONE
[2022-10-04] MEDS ORDERED: MIDAZOLAM INJ 2MG/2ML VIAL As Ordered ONE (07:58)
[2022-10-04] MEDS ORDERED: fentaNYL 100 MCG/2 ML INJECTION As Ordered ONE (07:59)
[2022-10-04] MEDS ORDERED: propofoL 500 MG/50 ML VIAL As Ordered ONE (09:06)
[2022-10-04 10:38] VITALS: BP 132/62; TEMP 97.9; O2SAT 98
== END 2022-10-04 10:48 | disposition home or self-care (01) ==
LOC: M SDC 07:13
PROVIDERS: ATTEND Surgery
DX: D17.22 Benign lipomatous neoplasm of skin and subcutaneous tissue of left arm (principal); Z88.8 Allergy status to other drugs, medicaments and biological substances
CPT/HCPCS: 11403; 88304; J0665; J0690; J2250; J3010

== ENCOUNTER 2023-04-11 10:06 | Day surgery (SDC) | payer OTHER ==
[~2023-04-11] VITALS: Ht 167.6 cm; Wt 106.4 kg
[~2023-04-11 10:06] MED LIST changes: +TOPI-21 PO; -TOPI-254 PO; -ceFAZolin SOD 2 GM in IV 1 EA IV ONE
[2023-04-11] MEDS: NS 1,000 ML IV ONE (10:35)
[2023-04-11] MEDS ORDERED: propofoL 200 MG/20 ML VIAL As Ordered ONE (11:08)
[2023-04-11] MEDS ORDERED: LIDOCAINE 2% 100MG/5ML SDV (FOR ANES.) As Ordered ONE (11:09)
[2023-04-11 11:46] VITALS: TEMP 96.7
[2023-04-11 12:07] VITALS: BP 146/76; O2SAT 99
== END 2023-04-11 12:19 | disposition home or self-care (01) ==
LOC: M OPP 10:06
PROVIDERS: ATTEND Internal Medicine Gastroenterology
DX: R10.30 Lower abdominal pain, unspecified (principal); R19.4 Change in bowel habit; K57.30 Diverticulosis of large intestine without perforation or abscess without bleeding; K64.0 First degree hemorrhoids; K21.9 Gastro-esophageal reflux disease without esophagitis; E78.00 Pure hypercholesterolemia, unspecified; Z79.899 Other long term (current) drug therapy; Z88.8 Allergy status to other drugs, medicaments and biological substances; G43.909 Migraine, unspecified, not intractable, without status migrainosus; Z90.710 Acquired absence of both cervix and uterus

== ENCOUNTER → 2023-11-12 | Outpatient (REF) | LOC: M EMP 10:57 | PROVIDERS: ATTEND Family Medicine | DX: Z20.822 Contact with and (suspected) exposure to COVID-19 (principal) ==

== ENCOUNTER → 2023-11-13 | Outpatient (REF) | payer OTHER ==
[~2023-11-13] MED LIST changes: -SIME180C25 PO; +SIME1CAP4 PO
== END ==
LOC: M LAB REF 18:33
PROVIDERS: ATTEND Physician Assistant Medical
DX: R52 Pain, unspecified (principal)

== ENCOUNTER → 2023-12-18 | Outpatient (REF) | LOC: M EMP 13:48 | PROVIDERS: ATTEND Family Medicine | DX: Z11.52 Encounter for screening for COVID-19 (principal) ==

== ENCOUNTER → 2024-04-09 | Outpatient (CLI) | payer OTHER | LOC: M SOG 13:16 | PROVIDERS: ATTEND Orthopaedic Surgery | DX: M25.562 Pain in left knee (principal); M25.572 Pain in left ankle and joints of left foot; M25.561 Pain in right knee; M17.0 Bilateral primary osteoarthritis of knee; S82.402K Unspecified fracture of shaft of left fibula, subsequent encounter for closed fracture with nonunion ==

== ENCOUNTER → 2024-04-30 | Outpatient (CLI) | payer OTHER | LOC: M PLAIMG 08:41 | PROVIDERS: ATTEND Orthopaedic Surgery | DX: S93.402A Sprain of unspecified ligament of left ankle, initial encounter (principal); X58.XXXA Exposure to other specified factors, initial encounter ==

== ENCOUNTER 2024-09-09 10:42 | Emergency (ER) | payer OTHER ==
[~2024-09-09] VITALS: Ht 167.6 cm; Wt 100.0 kg
[2024-09-09] MEDS ORDERED: AMOX875T2 (10:54)
[2024-09-09] MEDS: IPRATROPIUM 0.5 MG/ALBUTEROL 2.5 MG INH SOL UD 3 ML NEB ONE (11:27)
[2024-09-09] MEDS ORDERED: VENTAER INH (12:48)
[2024-09-09] MEDS ORDERED: ALBU2.5V10 NEB (12:48)
[2024-09-09] MEDS ORDERED: NEBU1EAC78 MC (12:48)
[2024-09-09 12:51] VITALS: BP 148/77; TEMP 96.7; O2SAT 96
== END 2024-09-09 12:54 | disposition home or self-care (01) ==
LOC: EDBD 10:42 → M ED 10:42
DX: J06.9 Acute upper respiratory infection, unspecified (principal); Z88.8 Allergy status to other drugs, medicaments and biological substances